=== PATIENT | male | born 1960 | race Caucasian/White ===

== ENCOUNTER 2017-02-05 02:30 | Emergency (ER) | payer MEDICAID ==
--- NOTE | 2017-02-05 03:06 | EDM.PDOC ---
ED HPI GI/ABDOMINAL - General Chief Complaint: Abdominal Pain Time Seen by Provider: 02/05/17 02:54 Source of Information: Reports: Patient - History of Present Illness INITIAL COMMENTS - FREE TEXT/NARRATIVE: Subacute to acute LUQ and LLQ going on for past couple of days maybe worse tonight. No NVD or dysuria. Seen in clinic for similar 2d ago with normal UA, CBC, Xray. Seen in ER and clinic numerous times in past for similar. Has stone on R side once in past. OTher CT scan was negative. Hx of developmental delay , kidney stone, otherwise healthy. Nonsmoker. Colonoscopy UTD and neg. - Related Data Allergies/ADRs: Allergies Allergy/AdvReac Type Severity Reaction Status Date / Time No Known Allergies Allergy Verified 10/11/15 01:21 Home Meds: Home Meds Dicyclomine [Bentyl] 10 mg PO TID PRN #30 cap 02/05/17 [Rx] Past Medical History - Past Surgical History Other Musculoskeletal Surgeries/Procedures:: hammer toe surgery as a child Social & Family History - Tobacco Use Smoking Status *Q: Never Smoker - Alcohol Use Days Per Week of Alcohol Use: 0 - Recreational Drug Use Recreational Drug Use: No - Living Situation & Occupation Living situation: Reports: single ED ROS GENERAL - Review of Systems Review Of Systems: See Below Constitutional: Denies: fever, chills Respiratory: Denies: Shortness of Breath Cardiovascular: Denies: Chest pain GI/Abdominal: Denies: Black stool, Bloody stool, Constipation, Diarrhea, Nausea , Vomiting : Denies: dysuria, hematuria ED EXAM, GI/ABD - Physical Exam Exam: See Below Exam Limited By: No limitations General Appearance: alert, WD/WN, no apparent distress (Laying comfortably in bed, 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 No: guarding, rebound, rigidity, Rovsing's sign Course - Vital Signs Last Recorded V/S: Last Vital Signs Temp 35.8 C 02/05/17 02:43 Pulse 69 02/05/17 02:43 Resp 16 02/05/17 02:43 BP 127/72 02/05/17 02:43 Pulse Ox 98 02/05/17 02:43 - Orders/Labs/Meds Orders: Active Orders 24 hr Category Date Time Status Abdomen Pelvis wo Cont [CT] Stat Exams 02/05/17 03:06 Taken UA W/MICROSCOPIC [URIN] Stat Lab 02/05/17 02:40 Uncollected Labs: Laboratory Tests 02/05/17 02/05/17 02/05/17 Range/Units 03:05 03:05 03:05 WBC 5.2 (4.0-10.0) x10^3/uL RBC 5.07 (4.5-6.0) x10^6/uL Hgb 14.5 (14.0-18.0) g/dL Hct 41.4 (40.0-52.0) % MCV 81.7 (78.0-93.0) fL MCH 28.6 (26.0-32.0) pg MCHC 35.0 (32.0-36.0) g/dL RDW Coeff of [place] 13.9 (10.0-15.0) % Plt Count 182 (130-400) x10^3/uL Neut % (Auto) 54.5 (50.0-80.0) % Lymph % (Auto) 33.3 (25.0-50.0) % [place] % (Auto) 7.3 (2.0-11.0) % Eos % (Auto) 3.6 (0.0-4.0) % Baso % (Auto) 1.3 H (0.2-1.2) % Sodium 141 (136-145) mmol/L Potassium 3.9 (3.5-5.1) mmol/L Chloride 106 (98-107) mmol/L Carbon Dioxide 29 (21-32) mmol/L BUN 15 (7-18) mg/dL Creatinine 1.1 (0.70-1.30) mg/dL Est Cr Clr Drug Dosing 66.78 mL/min Estimated GFR (MDRD) > 60 Glucose 93 (74-106) mg/dL Calcium 8.4 L (8.5-10.1) mg/dL Corrected Calcium 8.64 (8.5-10.1) mg/dL Total Bilirubin 0.9 (0.2-1.0) mg/dL AST 22 (15-37) U/L ALT 37 (16-63) U/L Alkaline Phosphatase 82 (46-116) U/L C-Reactive Protein < 0.2 (<=0.9) mg/dL Total Protein 6.8 (6.4-8.2) g/dL Albumin 3.7 (3.4-5.0) g/dL Globulin 3.1 Albumin/Globulin Ratio 1.19 Amylase 41 (25-115) U/L Meds: Medications Discontinued Medications Generic Name Dose Route Start Last Admin Trade Name Freq PRN Reason Stop Dose Admin Ketorolac Tromethamine 30 mg 02/05/17 03:08 02/05/17 03:19 Toradol IM 02/05/17 03:09 30 mg ONETIME ONE Administration Departure - Departure Time of Disposition: 03:53 Disposition: Home, Self-Care 01 Condition: good Clinical Impression: Abdominal pain Prescriptions: Dicyclomine [Bentyl] 10 mg PO TID PRN #30 cap PRN Reason: Abdominal Pain Referrals: PCP,Unknown [Primary Care Provider] - Forms: ED Department Discharge Additional Instructions: Recurrent abd pain with normal CBC, UA, repeat CT, colonoscopy would be consistent with functional/irritable bowl syndrome pain Metamcuil daily, plenty of fluids Bentyl or peppermints for attacks Limit beans, diary, breads Follow-up with Glenna in 2 weeks for recheck Because it's not clear what causes irritable bowel syndrome, treatment focuses on the relief of symptoms so that you can live as normally as possible. In most cases, you can successfully control mild signs and symptoms of irritable bowel syndrome by learning to manage stress and making changes in your diet and lifestyle. Try to avoid foods that trigger your symptoms. Also try to get enough exercise, drink plenty of fluids and get enough sleep. If your problems are moderate or severe, you may need more than lifestyle changes. Your doctor may suggest and medications. Dietary changes: Eliminating high-gas foods. If you have bothersome bloating or are passing considerable amounts of gas, your doctor may suggest that you cut out such items as carbonated beverages, vegetables especially cabbage, broccoli and cauliflower and raw fruits. Eliminating gluten. Research shows that some people with IBS report improvement in diarrhea symptoms if they stop eating gluten (wheat, barley and rye). This recommendation remains controversial, and the evidence is not clear. Eliminating FODMAPs. Some people are sensitive to types of carbohydrates such as fructose, fructans, lactose and others, called FODMAPs (fermentable oligo-, di-, and monosaccharides and polyols). FODMAPs are found in certain grains, vegetables, fruits and dairy products. However, often people are not bothered by every FODMAP food. You may be able to get relief from your IBS symptoms on a strict low FODMAP diet and then reintroduce foods one at time. See list below. Medications: Fiber supplements. Taking fiber supplements, such as psyllium (Metamucil) or methylcellulose (Citrucel), with fluids may help control constipation. Fiber obtained from food may cause much more bloating compared with a fiber supplement. If fiber doesn't help symptoms, your doctor may prescribe an osmotic laxative such as milk of magnesia or polyethylene glycol. Anticholinergic and antispasmodic medications. These medications, such as hyoscyamine (Levsin) and dicyclomine (Bentyl), can help relieve painful bowel spasms. They are sometimes used for people who have bouts of diarrhea, but they can worsen constipation and can lead to other symptoms, such as difficulty urinating. They should also be used with caution among people with glaucoma. Antidepressant medications. If your symptoms include pain or depression, your doctor may recommend a tricyclic antidepressant or a selective serotonin reuptake inhibitor (SSRI). These medications help relieve depression as well as inhibit the activity of neurons that control the intestines. If you have diarrhea and abdominal pain without depression, your doctor may suggest a lower than normal dose of tricyclic antidepressants, such as imipramine (Tofranil) or nortriptyline (Pamelor). Side effects of these drugs include drowsiness and constipation. SSRIs, such as fluoxetine (Prozac, Sarafem ) or paroxetine (Paxil), may be helpful if you're depressed and have pain and constipation. [place] with fiber. When you have irritable bowel syndrome, fiber can be a mixed blessing. Although it helps reduce constipation, it can also make gas and cramping worse. The best approach is to slowly increase the amount of fiber in your diet over a period of weeks. Examples of foods that contain fiber are whole grains, fruits, vegetables and beans. If your signs and symptoms remain the same or worse, tell your doctor. You may also want to talk to a dietitian. Some people do better limiting dietary fiber and instead take a fiber supplement that causes less gas and bloating. If you take a fiber supplement, such as Metamucil or Citrucel, be sure to introduce it slowly and drink plenty of water every day to reduce gas, bloating and constipation. If you find that taking fiber helps your IBS, use it on a regular basis for best results. Avoid problem foods. If certain foods make your signs and symptoms worse, don't eat them. These may include alcohol, chocolate, caffeinated beverages such as coffee and sodas, medications that contain caffeine, dairy products, and sugar- free sweeteners such as sorbitol or mannitol. If gas is a problem for you, foods that might make symptoms worse include beans , cabbage, cauliflower and broccoli. Fatty foods also may be a problem for some people. Chewing gum or drinking through a straw can lead to swallowing air, causing more gas. Eat at regular times. Don't skip meals, and try to eat about the same time each day to help regulate bowel function. If you have diarrhea, you may find that eating small, frequent meals makes you feel better. But if you're constipated, eating larger amounts of high-fiber foods may help move food through your intestines. Take care with dairy products. If you're lactose intolerant, try substituting yogurt for milk. Or use an enzyme product to help break down lactose. Consuming small amounts of milk products or combining them with other foods also may help. In some cases, though, you may need to stop eating dairy foods completely. If so, be sure to get enough protein, calcium and B vitamins from other sources. Drink plenty of liquids. Try to drink plenty of fluids every day. Water is best. Alcohol and beverages that contain caffeine stimulate your intestines and can make diarrhea worse, and carbonated drinks can produce gas. Exercise regularly. Exercise helps relieve depression and stress, stimulates normal contractions of your intestines, and can help you feel better about yourself. If you've been inactive, start slowly and gradually increase the amount of time you exercise. If you have other medical problems, check with your doctor before starting an exercise program. Use anti-diarrheal medications and laxatives with caution. If you try over-the- counter anti-diarrheal medications, such as Imodium or Kaopectate, use the lowest dose that helps. Imodium may be helpful if taken 20 to 30 minutes before eating, especially if you know that the food planned for your meal is likely to cause diarrhea. In the long run, these medications can cause problems if you don't use them correctly. The same is true of laxatives. If you have any questions about them, check with your doctor or pharmacist. The following nontraditional therapies may help relieve symptoms of IBS: Acupuncture. Researchers have found that acupuncture may help improve symptoms for people with IBS. Herbs. Peppermint is a natural antispasmodic that relaxes smooth muscles in the intestines. Peppermint may provide short-term relief of IBS symptoms, but study results have been inconsistent. If you'd like to try peppermint, be sure to use enteric-coated capsules. Peppermint may make heartburn worse. Before taking any herbs, check with your doctor to be sure they won't interact or interfere with other medications. A blend of herbs called STW 5 (Iberogast) has been shown to help some people. Hypnosis. Hypnosis may reduce abdominal pain and bloating. A trained professional teaches you how to enter a relaxed state and then guides you in relaxing your abdominal muscles. Probiotics. Probiotics are "good" bacteria that normally live in your intestines and are found in certain foods, such as yogurt, and in dietary supplements. It's been suggested that if you have irritable bowel syndrome, you may not have enough good bacteria and that adding probiotics to your diet may help ease your symptoms. Recent studies suggest that certain probiotics may relieve symptoms of IBS, such as abdominal pain, bloating, diarrhea and quality of life, although additional investigation is needed. Regular exercise, yoga, massage or meditation. These can all be useful ways to relieve stress. You can take classes in yoga and meditation or practice at home using books or videos. - Problem List Review Problem List Initiated/Reviewed/Updated: Yes - My Orders Last 24 Hours: My Active Orders 02/05/17 02:40 UA W/MICROSCOPIC [URIN] Stat 02/05/17 03:06 Abdomen Pelvis wo Cont [CT] Stat - Assessment/Plan Last 24 Hours: My Active Orders 02/05/17 02:40 UA W/MICROSCOPIC [URIN] Stat 02/05/17 03:06 Abdomen Pelvis wo Cont [CT] Stat Assessment:: Recurrent abd pain with normal CBC, UA, repeat CT, colonoscopy would be consistent with functional/IBS sx. Metamcuil daily, plenty of fluids Bentyl or peppermints for attacks Limit beans, diary, breads Follow-up with Glenna in 2 weeks for recheck
[2017-02-05] MEDS ORDERED: Ketorolac 30 MG/ML SDV IM ONE (03:08)
[2017-02-05 03:33] LABS: CHLORIDE,CL 106 mmol/L (98-107); SODIUM,NA 141 mmol/L (136-145)
[2017-02-05] MEDS ORDERED: Lactated Ringers 1,000 ML IV ONE ×3 (04:43→06:57)
[2017-02-05] MEDS ORDERED: Meclizine 25 MG Tab PO ONE (04:43)
[2017-02-05 07:07] VITALS: BP 135/67
== END 2017-02-05 08:15 | disposition home or self-care (01) ==
LOC: VM.ED 02:30
DX: R10.12 Left upper quadrant pain (principal); R10.32 Left lower quadrant pain
CPT/HCPCS: 36415; 74176; 80053; 82150; 85025; 86140; 93005; 96360; 96361; 96372; 99285; A9270; J1885; J7120

== ENCOUNTER 2017-03-22 16:11 | Emergency (ER) | payer MEDICAID ==
[2017-03-22 16:24] VITALS: BP 133/93
[2017-03-22] MEDS ORDERED: Prochlorperazine 10 MG/2 ML SDV IM ONE (16:46)
[2017-03-22 17:34] LABS: CHLORIDE,CL 105 mmol/L (98-107); SODIUM,NA 142 mmol/L (136-145)
--- NOTE | 2017-03-23 08:50 | ER ---
Date of Service: 03/22/2017 SUBJECTIVE: Yannick presents to emergency room with complaints of diffuse abdominal pain. He states that he has not had a bowel movement in several days. He states that his appetite has been poor. He states that he is able to hold down food and water but does not feel like eating or drinking due to increased stressors in his life. The patient does have a developmental delay, but does live independently and works at [employer] here in [place]. He was speaking with his mother today who lives approximately 60 miles away from [place]. She subsequently came to [place] and brought him here to the emergency room for evaluation and treatment. PAST MEDICAL HISTORY: Developmental delay. MEDICATIONS: 1. Bentyl. 2. MiraLAX. However, he has not been taking his MiraLAX for several days. ALLERGIES: NKDA. REVIEW OF SYSTEMS: General: No fever or chills. HEENT: No sore throat, rhinorrhea, or congestion. Respiratory: No shortness of breath. Cardiac: Denies any substernal chest pain. No jaw, arm, neck, or back pain. GI: Please see history of present illness. Denies any melena, hematochezia, or hematemesis. : Denies any dysuria. Musculoskeletal: No myalgias or arthralgias. Neurologic: No fainting, blackouts, or lightheadedness. PHYSICAL EXAMINATION: General: This is a 56-year-old male patient, who in no acute distress. Vital Signs: Blood pressure is 133/93, pulse rate is 72, temperature is 36.2, respiratory rate is 16, O2 saturations 97%. Skin: Warm, pink, and dry. HEENT: Head is normocephalic, atraumatic. Eyes, PERRLA. Extraocular movements intact. Mouth, oral mucosa is moist. No erythema or exudate noted in the hypopharynx. Neck: Supple. No masses. There is no lymphadenopathy. Lungs: Clear to auscultation. Heart: Regular rate and rhythm. Abdomen: Soft, diffusely tender throughout. There is no mass noted. There is no hepatosplenomegaly noted. Bowel sounds are hypoactive. LABORATORY DATA: Abdomen complete series was obtained. There was no evidence of any acute infiltrate or obstruction on the abdominal films. He did have evidence of stool throughout the entirety of his colon. Hematology, WBC is 4.7, hemoglobin is 15.7, platelets are 233. Chemistry, sodium is 142, potassium is 4.0, chloride is 105, bicarb is 28, BUN is 22, creatinine is 1.2. GFR is greater than 60. Glucose is 83. Lactic acid is 1.3. Calcium is 8.9, corrected calcium is 8.58, total bilirubin is 2.9. AST is 15, ALT is 24, alkaline phosphatase is 71, CK is 67, troponin is 0.00. EMERGENCY ROOM COURSE: The patient was given injection of 10 mg of Compazine IM. Did report some improvement in has nausea and was able to hold food and fluids down without difficulty. ASSESSMENT: 1. Constipation. 2. Acute anxiety. PLAN: The patient will be discharged. Advised him to restart MiraLAX 17 g once daily. Drink plenty of fluids. I advised him to be as active as much as possible, up ambulating and walking around. All questions were answered. MWK: 03/22/2017 19:15:50 MODL: 03/22/2017 23:21:34 /[id number]
== END 2017-03-22 18:30 | disposition home or self-care (01) ==
LOC: VM.ED 16:11
DX: K59.00 Constipation, unspecified (principal); F41.9 Anxiety disorder, unspecified; R62.50 Unspecified lack of expected normal physiological development in childhood
CPT/HCPCS: 36415; 74022; 80053; 82550; 82553; 83605; 84484; 85025; 86140; 93005; 96372; 99284; J0780

== ENCOUNTER 2019-02-15 04:53 | Emergency (ER) | payer MEDICAID ==
[2019-02-15] MEDS ORDERED: GI Cocktail Oral Solution 30 ML PO ONE (05:13)
[2019-02-15] MEDS ORDERED: Ketorolac 30 MG/ML SDV IM ONE (05:14)
[2019-02-15 06:06] LABS: CHLORIDE,CL 107 mmol/L (98-107); SODIUM,NA 143 mmol/L (136-145)
[2019-02-15 06:07] LABS: ANION GAP 14.8 mmol/L (10-20)
--- NOTE | 2019-02-15 06:17 | EDM.PDOC ---
ED HPI GENERAL MEDICAL PROBLEM - General Chief Complaint: Chest Pain Time Seen by Provider: 02/15/19 05:00 Source of Information: Reports: Patient History Limitations: Reports: No Limitations - History of Present Illness INITIAL COMMENTS - FREE TEXT/NARRATIVE: Pt. presents to ER with complaints of chest pain and RLQ abdominal pain. Pt. states that the symptoms started yesterday. Denies any radiation into jaw, arms , neck or back. He states that he underwent an EGD with botox injection. last week for reflux. He states that the discomfort is worse when he moves or takes a deep breath. States that the discomfort is a burning/pressure type pain. Denies any fever or chills. No vomiting of blood or abnormal taste. No dark or tarry stools. He states that the pain started intermittently this past weekend but got worse yesterday and today. Denies any headache or lightheadedness. No palpitations. Onset: Today Onset Date: 02/15/19 Location: Reports: Chest, Abdomen Quality: Reports: Ache, Burning Severity: Moderate Associated Symptoms: Reports: Chest Pain Middle Chest Pain Score (Numeric/FACES): 5 - Related Data Allergies Allergy/AdvReac Type Severity Reaction Status Date / Time No Known Allergies Allergy Verified 02/15/19 05:07 Home Meds: Home Meds Dicyclomine [Bentyl] 10 mg PO TID PRN #30 cap 02/05/17 [Rx] Levothyroxine Sodium [Synthroid] 25 mcg PO ACBREAKFAST 09/19/17 [History] Sertraline HCl [Zoloft] 75 mg PO DAILY 09/19/17 [History] Melatonin 3 mg PO BEDTIME 02/15/19 [History] Pantoprazole Sodium [Protonix] 20 mg PO BID 02/15/19 [History] Past Medical History - Past Health History Medical/Surgical History: Denies Medical/Surgical History Psychiatric History: Reports: Depression Endocrine/Metabolic History: Reports: Hypothyroidism - Past Surgical History GI Surgical History: Reports: EGD Other GI Surgeries/Procedures: EGD 02/11/19 Other Musculoskeletal Surgeries/Procedures:: hammer toe surgery as a child Social & Family History - Tobacco Use Smoking Status *Q: Never Smoker - Living Situation & Occupation Living situation: Reports: Single ED ROS GENERAL - Review of Systems Review Of Systems: See Below Constitutional: Reports: No Symptoms HEENT: Reports: No Symptoms Respiratory: Reports: No Symptoms, Pleuritic Chest Pain Cardiovascular: Reports: Chest Pain Endocrine: Reports: No Symptoms GI/Abdominal: Reports: Abdominal Pain : Reports: No Symptoms Musculoskeletal: Reports: No Symptoms Skin: Reports: No Symptoms Neurological: Reports: No Symptoms Psychiatric: Reports: No Symptoms Hematologic/Lymphatic: Reports: No Symptoms Immunologic: Reports: No Symptoms ED EXAM, GENERAL - Physical Exam Exam: See Below Exam Limited By: No Limitations General Appearance: Alert, WD/WN, No Apparent Distress Nose: Normal Inspection, Normal Mucosa, No Blood Throat/Mouth: Normal Inspection, Normal Lips, Normal Teeth, Normal Gums, Normal Oropharynx, Normal Voice, No Airway Compromise Head: Atraumatic, Normocephalic Neck: Normal Inspection, Supple, Non-Tender, Full Range of Motion Respiratory/Chest: No Respiratory Distress, Lungs Clear, Normal Breath Sounds, No Accessory Muscle Use, Other (increased chest pain with compression of the chest wall and with palpation) Cardiovascular: Normal Peripheral Pulses, Regular Rate, Rhythm, No Edema, No Gallop, No JVD, No Murmur, No Rub Peripheral Pulses: 4+: Radial (L) GI/Abdominal: Normal Bowel Sounds, Soft, No Organomegaly, No Distention, No Mass , Tender (R side of abdomen. No rebound. No guarding.) (Male) Exam: Deferred Rectal (Males) Exam: Deferred Back Exam: Normal Inspection, Full Range of Motion Extremities: Normal Inspection, Normal Range of Motion, Non-Tender, No Pedal Edema, Normal Capillary Refill Neurological: Alert, Oriented, CN II-XII Intact, Normal Cognition, Normal Gait, Normal Reflexes, No Motor/Sensory Deficits Psychiatric: Normal Affect, Normal Mood Skin Exam: Warm, Dry, Intact, Normal Color, No Rash Lymphatic: No Adenopathy EKG INTERPRETATION Rhythm: NSR [place]: Normal P-Wave: Present QRS: Normal ST-T: Normal QT: Normal Comparison: No Change Course - Vital Signs Last Recorded V/S: Last Vital Signs Temp 35.8 C 02/15/19 04:54 Pulse 63 02/15/19 04:54 Resp 18 02/15/19 04:54 BP 146/93 H 02/15/19 04:54 Pulse Ox 99 02/15/19 04:54 - Orders/Labs/Meds Orders: Active Orders 24 hr Category Date Time Status EKG Documentation Completion [RC] STAT Care 02/15/19 05:08 Active Chest 2V [CR] Stat Exams 02/15/19 05:09 Taken CBC WITH AUTO DIFF [HEME] Stat Lab 02/15/19 05:27 Received INR,PT,PROTHROMBIN TIME [COAG] Stat Lab 02/15/19 05:27 Received UA W/MICROSCOPIC [URIN] Stat Lab 02/15/19 06:05 Ordered Labs: Laboratory Tests 02/15/19 02/15/19 Range/Units 05:27 05:37 Sodium 143 (136-145) mmol/L Potassium 3.8 (3.5-5.1) mmol/L Chloride 107 (98-107) mmol/L Carbon Dioxide 25 (21-32) mmol/L Anion Gap 14.8 (10-20) mmol/L BUN 17 (7-18) mg/dL Creatinine 1.0 (0.70-1.30) mg/dL Est Cr Clr Drug Dosing TNP Estimated GFR (MDRD) > 60 Glucose 87 (74-106) mg/dL Calcium 8.7 (8.5-10.1) mg/dL Corrected Calcium 8.86 (8.5-10.1) mg/dL Phosphorus 2.9 (2.6-4.7) mg/dL Magnesium 2.2 (1.8-2.4) mg/dL Total Bilirubin 1.2 H (0.2-1.0) mg/dL AST 17 (15-37) U/L ALT 23 (16-63) U/L Alkaline Phosphatase 76 (46-116) U/L POC Troponin I 0.00 (0.00-0.08) ng/mL C-Reactive Protein < 0.2 (<=0.9) mg/dL Total Protein 7.0 (6.4-8.2) g/dL Albumin 3.8 (3.4-5.0) g/dL Globulin 3.2 Albumin/Globulin Ratio 1.19 TSH, Ultra Sensitive 10.314 H (0.358-3.74) uIU/mL Meds: Medications Discontinued Medications Generic Name Dose Route Start Last Admin Trade Name Freq PRN Reason Stop Dose Admin Al Hydroxide/Mg Hydroxide 30 ml 02/15/19 05:13 02/15/19 05:20 Gi Cocktail PO 02/15/19 05:14 30 ml ONETIME ONE Administration Ketorolac Tromethamine 30 mg 02/15/19 05:14 02/15/19 05:20 Toradol IM 02/15/19 05:15 30 mg ONETIME ONE Administration - Radiology Interpretation Free Text/Narrative:: No acute pathology Departure - Departure Time of Disposition: 06:49 Disposition: Home, Self-Care 01 Clinical Impression: Abdominal pain, Atypical chest pain - Discharge Information - Problem List Review Problem List Initiated/Reviewed/Updated: Yes - My Orders Last 24 Hours: My Active Orders 02/15/19 05:08 EKG Documentation Completion [RC] STAT 02/15/19 05:09 Chest 2V [CR] Stat 02/15/19 05:27 CBC WITH AUTO DIFF [HEME] Stat INR,PT,PROTHROMBIN TIME [COAG] Stat 02/15/19 06:05 UA W/MICROSCOPIC [URIN] Stat - Assessment/Plan Last 24 Hours: My Active Orders 02/15/19 05:08 EKG Documentation Completion [RC] STAT 02/15/19 05:09 Chest 2V [CR] Stat 02/15/19 05:27 CBC WITH AUTO DIFF [HEME] Stat INR,PT,PROTHROMBIN TIME [COAG] Stat 02/15/19 06:05 UA W/MICROSCOPIC [URIN] Stat Plan: Continue with your current medications. If you are continuing to have discomfort, Maalox may be of benefit. Ibuprofen 600mg every 8 hours for pain. Follow-up in clinic in 7-10 days for recheck. Return to ER if increased discomfort, trouble breathing or swallowing.
[2019-02-15 06:55] VITALS: BP 125/78
--- NOTE | 2019-02-15 08:19 | CR ---
[id number] RAD/RAD Chest PA And Lateral EXAM: FRONTAL AND LATERAL CHEST INDICATION: Chest pain. COMPARISON: September 19, 2017. DISCUSSION: There is mild cardiomegaly without evidence congestive heart failure. Chronically obscured left hemidiaphragm. No definite infiltrates. IMPRESSION: 1. Stable cardiomegaly without evidence of congestive heart failure. Franco Hamilton MD 02/15/19 0817 Thank you for allowing us to participate in the care of your patient.
== END 2019-02-15 06:46 | disposition home or self-care (01) ==
LOC: VM.ED 04:53
DX: R07.89 Other chest pain (principal); R10.31 Right lower quadrant pain; F32.9 Major depressive disorder, single episode, unspecified; E03.9 Hypothyroidism, unspecified; Z79.899 Other long term (current) drug therapy
CPT/HCPCS: 36415; 71046; 80053; 81001; 83735; 84100; 84443; 84484; 85025; 85610; 86140; 93005; 96372; 99285-25; A9270-GY; J1885

== ENCOUNTER 2019-06-22 12:11 | Emergency (ER) | payer MEDICAID ==
[2019-06-22] MEDS ORDERED: Sodium Chloride 0.9% 10 ML Syringe FLUSH PRN (12:20)
--- NOTE | 2019-06-22 12:48 | EDM.PDOC ---
ED HPI GENERAL MEDICAL PROBLEM - General Chief Complaint: Abdominal Pain Stated Complaint: WEAKNESS,STOMACH AND STOMACH PAIN Time Seen by Provider: 06/22/19 12:18 - History of Present Illness INITIAL COMMENTS - FREE TEXT/NARRATIVE: PT presents with c/o left side abd pain and chest pain that started today. PT states has not had a bm in a few days at this time. Onset: Today Location: Reports: Abdomen Quality: Reports: Ache Improves with: Reports: None Worsens with: Reports: None - Related Data Allergies Allergy/AdvReac Type Severity Reaction Status Date / Time No Known Allergies Allergy Verified 02/15/19 05:07 Home Meds: Home Meds Dicyclomine [Bentyl] 10 mg PO TID PRN #30 cap 02/05/17 [Rx] Levothyroxine Sodium [Synthroid] 25 mcg PO ACBREAKFAST 09/19/17 [History] Sertraline HCl [Zoloft] 75 mg PO DAILY 09/19/17 [History] Melatonin 3 mg PO BEDTIME 02/15/19 [History] Pantoprazole Sodium [Protonix] 20 mg PO BID 02/15/19 [History] Past Medical History - Past Health History Medical/Surgical History: Denies Medical/Surgical History Psychiatric History: Reports: Depression Endocrine/Metabolic History: Reports: Hypothyroidism - Past Surgical History GI Surgical History: Reports: EGD Other GI Surgeries/Procedures: EGD 02/11/19 Other Musculoskeletal Surgeries/Procedures:: hammer toe surgery as a child Social & Family History - Living Situation & Occupation Living situation: Reports: Single ED ROS GENERAL - Review of Systems Review Of Systems: See Below ED EXAM, GI/ABD - Physical Exam Exam: See Below Text/Narrative:: CT noted moderate amount of stool in the colon, small periumbilical hernia, 0.7 cm nonobstructing right renal calculus General Appearance: Alert, WD/WN, No Apparent Distress Ears: Normal External Exam Nose: Normal Inspection Throat/Mouth: Normal Inspection Head: Atraumatic, Normocephalic Neck: Normal Inspection, Supple, Non-Tender, Full Range of Motion Respiratory/Chest: No Respiratory Distress, Lungs Clear, Normal Breath Sounds, No Accessory Muscle Use, Chest Non-Tender Cardiovascular: Normal Peripheral Pulses, Regular Rate, Rhythm, No Edema, No Gallop, No JVD, No Murmur, No Rub GI/Abdominal Exam: Soft, No Mass, Pelvis Stable, Other (pain to the left side of abd, and midepigastric area ) Extremities: Normal Inspection, Normal Range of Motion, Non-Tender, Normal Capillary Refill, No Pedal Edema Course - Orders/Labs/Meds Orders: Active Orders 24 hr Category Date Time Status EKG 12 Lead [EKG Documentation Completion] [RC] STAT Care 06/22/19 12:21 Active Sodium Chloride 0.9% [Saline Flush] Med 06/22/19 12:20 Active 10 ml FLUSH ASDIRECTED PRN Peripheral IV Insertion Adult [OM.PC] Routine Oth 06/22/19 12:20 Ordered Medication Orders Sodium Chloride (Saline Flush) 10 ml FLUSH ASDIRECTED PRN PRN Reason: Keep Vein Open Labs: Laboratory Tests 06/22/19 06/22/19 06/22/19 Range/Units 12:30 12:30 12:30 WBC 4.6 (4.0-10.0) x10^3/uL RBC 5.46 (4.5-6.0) x10^6/uL Hgb 15.9 (14.0-18.0) g/dL Hct 45.2 (40.0-52.0) % MCV 82.8 (78.0-93.0) fL MCH 29.1 (26.0-32.0) pg MCHC 35.2 (32.0-36.0) g/dL RDW Coeff of [place] 13.6 (10.0-15.0) % Plt Count 203 (130-400) x10^3/uL Neut % (Auto) 65.9 (50.0-80.0) % Lymph % (Auto) 26.3 (25.0-50.0) % [place] % (Auto) 5.2 (2.0-11.0) % Eos % (Auto) 1.7 (0.0-4.0) % Baso % (Auto) 0.9 (0.2-1.2) % Sodium 142 (136-145) mmol/L Potassium 4.6 (3.5-5.1) mmol/L Chloride 106 (98-107) mmol/L Carbon Dioxide 28 (21-32) mmol/L Anion Gap 12.6 (10-20) mmol/L BUN 16 (7-18) mg/dL Creatinine 1.2 (0.70-1.30) mg/dL Est Cr Clr Drug Dosing TNP Estimated GFR (MDRD) > 60 Glucose 83 (74-106) mg/dL Calcium 9.2 (8.5-10.1) mg/dL Troponin I < 0.017 (<=0.056) ng/mL Meds: Medications Generic Name Dose Route Start Last Admin Trade Name Freq PRN Reason Stop Dose Admin Sodium Chloride 10 ml 06/22/19 12:20 Saline Flush FLUSH ASDIRECTED PRN Keep Vein Open Discontinued Medications Generic Name Dose Route Start Last Admin Trade Name Freq PRN Reason Stop Dose Admin Iopamidol 100 ml 06/22/19 13:13 06/22/19 13:41 Isovue-300 (61%) IVPUSH 06/22/19 13:14 100 ml ONETIME ONE Administration Departure - Departure Time of Disposition: 15:10 Disposition: Home, Self-Care 01 Clinical Impression: Constipation, Hernia, Renal calculus - Discharge Information *PRESCRIPTION DRUG MONITORING PROGRAM REVIEWED*: Not Applicable *COPY OF PRESCRIPTION DRUG MONITORING REPORT IN PATIENT JAVAD: Not Applicable Instructions: Constipation, Adult Referrals: Glenna Ribeiro PA-C [Primary Care Provider] - Forms: ED Department Discharge Additional Instructions: magnesium citrate take on bottle at home for constipation. Follow up with pcp for continued care. - My Orders Last 24 Hours: My Active Orders 06/22/19 12:20 Sodium Chloride 0.9% [Saline Flush] 10 ml FLUSH ASDIRECTED PRN Peripheral IV Insertion Adult [OM.PC] Routine 06/22/19 12:21 EKG 12 Lead [EKG Documentation Completion] [RC] STAT - Assessment/Plan Last 24 Hours: My Active Orders 06/22/19 12:20 Sodium Chloride 0.9% [Saline Flush] 10 ml FLUSH ASDIRECTED PRN Peripheral IV Insertion Adult [OM.PC] Routine 06/22/19 12:21 EKG 12 Lead [EKG Documentation Completion] [RC] STAT
[2019-06-22 12:51] LABS: ANION GAP 12.6 mmol/L (10-20); CHLORIDE,CL 106 mmol/L (98-107); SODIUM,NA 142 mmol/L (136-145)
[2019-06-22] MEDS ORDERED: Iopamidol 612 MG/ML 100 ML Bottle IVPUSH ONE (13:13)
--- NOTE | 2019-06-22 14:51 | CT ---
[id number] CT/CT Abdomen Pelvis W IV EXAM: CT Abdomen Pelvis W IV CLINICAL DATA: ABDOMINAL PAIN LEFT SIDE, NO BM 2 DAYS. COMPARISON STUDY: None. FINDINGS: Lung bases are clear. Liver, spleen, gallbladder, pancreas, and adrenal glands are unremarkable. There is a 0.7 cm nonobstructing right renal calculus. No other renal calculi identified. No hydronephrosis or hydroureter. No suspicious renal lesions are identified. No bowel obstruction or inflammation. The appendix is visualized and appears normal. There are a few scattered colonic diverticula without evidence of acute diverticulitis. Moderate amount of retained stool within the colon. There are a few prominent retroperitoneal lymph nodes. For example there is a right retroperitoneal lymph node measuring 1.0 cm in short axis (series 2 image 47). Small fat-containing periumbilical hernia. Small fat-containing inguinal hernias. Scattered changes of spondylosis the spine. No fracture or osseous lesion. IMPRESSION: 1. Moderate amount of retained stool within the colon. No evidence of obstruction. 2. Nonobstructing right renal calculus. 3. Bilateral retroperitoneal adenopathy, nonspecific. Mk Jones DO 06/22/19 [id number] Thank you for allowing us to participate in the care of your patient.
[2019-06-22 16:33] VITALS: BP 124/74; PULSE 60
== END 2019-06-22 16:15 | disposition home or self-care (01) ==
LOC: VM.ED 12:11
DX: N20.0 Calculus of kidney (principal); K42.9 Umbilical hernia without obstruction or gangrene; E03.9 Hypothyroidism, unspecified; Z79.899 Other long term (current) drug therapy
CPT/HCPCS: 36415; 74177; 80048; 84484; 85025; 93005; 99284; Q9967

== ENCOUNTER 2019-12-09 11:49 | Emergency (ER) | payer MEDICAID ==
[2019-12-09] MEDS ORDERED: GI Cocktail Oral Solution 30 ML PO ONE (11:57)
--- NOTE | 2019-12-09 12:05 | EDM.PDOC ---
ED HPI GENERAL MEDICAL PROBLEM - General Chief Complaint: Abdominal Pain Stated Complaint: general Time Seen by Provider: 12/09/19 11:50 Source of Information: Reports: Patient History Limitations: Reports: No Limitations - History of Present Illness INITIAL COMMENTS - FREE TEXT/NARRATIVE: Patient comes into the emergency department with complaints of abdominal pain, left groin pain, and no chest discomfort. Patient states all of the above symptoms started last evening around 11 PM. He states he did have an EGD completed earlier in the month. He does not know the results of that. He denies any shortness of breath, diaphoresis, nausea vomiting, or loss of bowels. Patient also denies any episodes of diarrhea. Patient is a poor historian and is not consistent with his answers. Onset: Gradual Quality: Reports: Ache, Burning Severity: Mild Improves with: Reports: None Worsens with: Reports: None Associated Symptoms: Reports: No Other Symptoms Bilateral Chest Pain Score (Numeric/FACES): 7 - Related Data Allergies Allergy/AdvReac Type Severity Reaction Status Date / Time No Known Allergies Allergy Verified 12/09/19 12:11 Home Meds: Home Meds Dicyclomine [Bentyl] 10 mg PO TID PRN #30 cap 02/05/17 [Rx] Levothyroxine Sodium [Synthroid] 25 mcg PO ACBREAKFAST 09/19/17 [History] Sertraline HCl [Zoloft] 75 mg PO DAILY 09/19/17 [History] Melatonin 3 mg PO BEDTIME 02/15/19 [History] Pantoprazole Sodium [Protonix] 20 mg PO BID 02/15/19 [History] Diltiazem HCl [Cardizem] 60 mg TID 06/22/19 [History] Past Medical History - Past Health History Medical/Surgical History: Denies Medical/Surgical History Cardiovascular History: Reports: Other (See Below) Other Cardiovascular History: costochondral chest pain Gastrointestinal History: Reports: Other (See Below) Other Gastrointestinal History: esophageal dysmotility. L sided abd pain Genitourinary History: Reports: Other (See Below) Other Genitourinary History: nephrolithiasis Neurological History: Reports: Other (See Below) Other Neuro History: developmental delay disorder Psychiatric History: Reports: Depression Endocrine/Metabolic History: Reports: Hypothyroidism - Past Surgical History GI Surgical History: Reports: EGD Other GI Surgeries/Procedures: EGD 02/11/19 Other Musculoskeletal Surgeries/Procedures:: hammer toe surgery as a child Social & Family History - Living Situation & Occupation Living situation: Reports: Single ED ROS GENERAL - Review of Systems Review Of Systems: See Below Constitutional: Reports: No Symptoms HEENT: Reports: No Symptoms Respiratory: Reports: No Symptoms Cardiovascular: Reports: No Symptoms Endocrine: Reports: No Symptoms : Reports: No Symptoms Musculoskeletal: Reports: No Symptoms Skin: Reports: No Symptoms Neurological: Reports: No Symptoms Psychiatric: Reports: No Symptoms Hematologic/Lymphatic: Reports: No Symptoms ED EXAM, GENERAL - Physical Exam Exam: See Below Exam Limited By: No Limitations General Appearance: Alert, WD/WN, No Apparent Distress Eye Exam: Bilateral Eye: EOMI, PERRL Head: Atraumatic, Normocephalic Neck: Normal Inspection, Supple, Non-Tender Respiratory/Chest: No Respiratory Distress, Lungs Clear, Normal Breath Sounds, No Accessory Muscle Use, Chest Non-Tender Cardiovascular: Normal Peripheral Pulses, Regular Rate, Rhythm, No Edema GI/Abdominal: Tender, Abnormal Bowel Sounds (Male) Exam: No Hernia Back Exam: Normal Inspection, Full Range of Motion Extremities: Normal Inspection, Normal Range of Motion, Non-Tender, No Pedal Edema, Normal Capillary Refill Neurological: Alert, Oriented, Normal Gait Psychiatric: Normal Affect, Normal Mood Skin Exam: Warm, Dry, Intact, Normal Color Course - Vital Signs Last Recorded V/S: Last Vital Signs Temp 36.7 C 12/09/19 11:49 Pulse 63 12/09/19 11:49 Resp 18 12/09/19 11:49 BP 141/79 H 12/09/19 11:49 Pulse Ox 97 12/09/19 11:49 - Orders/Labs/Meds Labs: Laboratory Tests 12/09/19 12/09/19 Range/Units 12:07 12:07 WBC 3.7 L (4.0-10.0) x10^3/uL RBC 5.21 (4.5-6.0) x10^6/uL Hgb 14.9 (14.0-18.0) g/dL Hct 42.9 (40.0-52.0) % MCV 82.3 (78.0-93.0) fL MCH 28.6 (26.0-32.0) pg MCHC 34.7 (32.0-36.0) g/dL RDW Coeff of [place] 13.6 (10.0-15.0) % Plt Count 215 (130-400) x10^3/uL Neut % (Auto) 64.1 (50.0-80.0) % Lymph % (Auto) 26.0 (25.0-50.0) % [place] % (Auto) 6.0 (2.0-11.0) % Eos % (Auto) 2.5 (0.0-4.0) % Baso % (Auto) 1.4 H (0.2-1.2) % Sodium 145 (136-145) mmol/L Potassium 4.2 (3.5-5.1) mmol/L Chloride 108 H (98-107) mmol/L Carbon Dioxide 28 (21-32) mmol/L Anion Gap 13.2 (10-20) mmol/L BUN 12 (7-18) mg/dL Creatinine 1.0 (0.70-1.30) mg/dL Est Cr Clr Drug Dosing TNP Estimated GFR (MDRD) > 60 Glucose 82 (74-106) mg/dL Calcium 8.8 (8.5-10.1) mg/dL Corrected Calcium 9.12 (8.5-10.1) mg/dL Total Bilirubin 1.2 H (0.2-1.0) mg/dL AST 16 (15-37) U/L ALT 21 (16-63) U/L Alkaline Phosphatase 80 (46-116) U/L Creatine Kinase 59 (39-308) U/L Total Protein 6.9 (6.4-8.2) g/dL Albumin 3.6 (3.4-5.0) g/dL Globulin 3.3 Albumin/Globulin Ratio 1.09 Amylase 41 (25-115) U/L Lipase 87 (73-393) U/L Meds: Medications Discontinued Medications Generic Name Dose Route Start Last Admin Trade Name Freq PRN Reason Stop Dose Admin Al Hydroxide/Mg Hydroxide 30 ml 12/09/19 11:57 12/09/19 12:23 Gi Cocktail PO 12/09/19 11:58 30 ml ONETIME ONE Administration Iopamidol 100 ml 12/09/19 12:51 12/09/19 12:58 Isovue-300 (61%) IVPUSH 12/09/19 12:52 100 ml ONETIME ONE Administration Departure - Departure Time of Disposition: 13:55 Disposition: Home, Self-Care 01 Condition: Good Clinical Impression: Gastritis Qualifiers: Gastritis type: unspecified gastritis Chronicity: acute Gastritis bleeding: without bleeding Qualified Code(s): K29.00 - Acute gastritis without bleeding - Discharge Information *PRESCRIPTION DRUG MONITORING PROGRAM REVIEWED*: Not Applicable *COPY OF PRESCRIPTION DRUG MONITORING REPORT IN PATIENT JAVAD: Not Applicable Instructions: Gastritis, Adult, [id number], Nonspecific Chest Pain, Easy-to- Read Forms: ED Department Discharge Additional Instructions: 1. Rest 2. Increase your water intake 3. The labs, EKG, CT scan completed in the emergency department today raw negative. 4. 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 Continue all at home medications as prescribed 6. Activity and diet as tolerated 7. Call with any questions or concerns Sepsis Event Note - Focused Exam Vital Signs: Vital Signs Temp Pulse Resp BP Pulse Ox 12/09/19 11:49 36.7 C 63 18 141/79 H 97 Date Exam was Performed: 12/09/19 Time Exam was Performed: 13:53 - Assessment/Plan Assessment:: 1. Abdominal pain 2. Left groin pain 3. Chest pain Plan: 1. X-ray completed in the ER. Results reviewed with patient 2. CT completed in the ER. Results reviewed with patient 3. Labs completed in ER. Results reviewed with patient 4. GI cocktail given to the patient emergency department with relief noted within minutes of taking 5. Patient denies having any other concerns or complaints on his ready for discharge 6. Education regarding rest, activity, diet, [id number] medication, and follow-up care was provided 7. All questions and concerns addressed with the patient prior to discharge
[2019-12-09 12:33] LABS: CHLORIDE,CL 108 mmol/L (98-107); SODIUM,NA 145 mmol/L (136-145)
[2019-12-09 12:39] LABS: ANION GAP 13.2 mmol/L (10-20)
[2019-12-09] MEDS ORDERED: Iopamidol 612 MG/ML 100 ML Bottle IVPUSH ONE (12:51)
--- NOTE | 2019-12-09 13:14 | CR ---
[id number] RAD/RAD Chest PA or AP 1V EXAM: RAD Chest PA or AP 1V INDICATION: CHEST PAIN. COMPARISON: February 15, 2019. DISCUSSION: Cardiomediastinal silhouette is stable in size and contour. No infiltrate, effusion, pneumothorax, or edema. Left basilar subsegmental atelectasis and/or scarring. IMPRESSION: No acute cardiopulmonary abnormality. Mk Jones DO 12/09/19 1313 Thank you for allowing us to participate in the care of your patient.
--- NOTE | 2019-12-09 13:42 | CT ---
[id number] CT/CT Abdomen Pelvis W IV EXAM: ABDOMEN AND PELVIS CT WITH CONTRAST INDICATION: Abdominal pain. COMPARISON: June 22, 2019. DISCUSSION: Small to moderate fat-containing umbilical and bilateral inguinal hernias. Scattered colonic diverticula without evidence of diverticulitis. 8 x 4 mm nonobstructing calculus upper pole right kidney. A subcentimeter hypodensity in the lower pole of the right kidney is too small to further characterize, likely represents a small cyst. Mild prostatomegaly. Borderline cardiomegaly. The liver, gallbladder, spleen, pancreas, adrenal glands, left kidney, small bowel and the appendix are normal in appearance. No adenopathy, free air free fluid. The osseous structures are unremarkable. IMPRESSION: 1. No acute findings. Franco Hamilton MD 12/09/19 9520 Thank you for allowing us to participate in the care of your patient.
[2019-12-09 14:09] VITALS: BP 132/84; PULSE 78
== END 2019-12-09 14:10 | disposition home or self-care (01) ==
LOC: VM.ED 11:49
DX: K29.00 Acute gastritis without bleeding (principal); E03.9 Hypothyroidism, unspecified; Z79.899 Other long term (current) drug therapy
CPT/HCPCS: 36415; 71045; 74177; 80053; 82150; 82550; 83690; 84484; 85025; 99285-25; A9270-GY; Q9967

== ENCOUNTER 2020-01-17 12:49 | Emergency (ER) | payer MEDICAID ==
[2020-01-17] MEDS ORDERED: Sodium Chloride 0.9% 10 ML Syringe FLUSH PRN (13:18)
[2020-01-17] MEDS ORDERED: Ondansetron 4 MG/2 ML SDV IVPUSH ONE (13:21)
[2020-01-17] MEDS ORDERED: Sodium Chloride 0.9% 1,000 ML IV ONE ×2 (13:21→14:39)
--- NOTE | 2020-01-17 13:46 | EDM.PDOC ---
ED HPI GENERAL MEDICAL PROBLEM - General Stated Complaint: TORSO HURTING, NAUSEA Time Seen by Provider: 01/17/20 13:00 Source of Information: Reports: Patient History Limitations: Reports: No Limitations - History of Present Illness INITIAL COMMENTS - FREE TEXT/NARRATIVE: Pt. presents to ER with numerous complaints. Pt. states that he underwent R inguinal hernia repair on 01/12/22. Pt. states that he did well postoperatively, but states over the past 36 hours, the patient has been experiencing nausea, abdominal cramping, chest pain, and generally not feeling well. He has not been checking his temp. No vomiting. He thinks he may be constipated. He states that his BMs have been smaller than normal and states that he had one today. Denies any bloody stools. No black or tarry stools. He states that the discomfort is located in the upper abd. area with radiation into the chest. Denies any jaw, arm, neck or back pain. Denies cough. No rhinorrhea or congestion. Denies any vomiting. Pt. states be has been afebrile. No ill contacts. Denies any dysuria. Onset Date: 01/16/20 Location: Reports: Chest, Abdomen Quality: Reports: Ache Severity: Moderate Improves with: Reports: Rest Worsens with: Reports: Eating Context: Denies: Sick Contact Associated Symptoms: Reports: Chest Pain, Loss of Appetite, Nausea/Vomiting, Syncope, Weakness. Denies: Diaphoresis, Fever/Chills, Headaches, Malaise, Seizure, Shortness of Breath Bilateral Abdominal Pain Score (Numeric/FACES): 7 - Related Data Allergies Allergy/AdvReac Type Severity Reaction Status Date / Time No Known Allergies Allergy Verified 01/17/20 13:44 Home Meds: Home Meds Dicyclomine [Bentyl] 10 mg PO TID PRN #30 cap 02/05/17 [Rx] Levothyroxine Sodium [Synthroid] 25 mcg PO ACBREAKFAST 09/19/17 [History] Sertraline HCl [Zoloft] 75 mg PO DAILY 09/19/17 [History] Melatonin 3 mg PO BEDTIME 02/15/19 [History] Pantoprazole Sodium [Protonix] 20 mg PO BID 02/15/19 [History] Diltiazem HCl [Cardizem] 60 mg TID 06/22/19 [History] Past Medical History - Past Health History Medical/Surgical History: Denies Medical/Surgical History Cardiovascular History: Reports: Other (See Below) Other Cardiovascular History: costochondral chest pain Gastrointestinal History: Reports: Other (See Below) Other Gastrointestinal History: esophageal dysmotility. L sided abd pain Genitourinary History: Reports: Other (See Below) Other Genitourinary History: nephrolithiasis Neurological History: Reports: Other (See Below) Other Neuro History: developmental delay disorder Psychiatric History: Reports: Depression Endocrine/Metabolic History: Reports: Hypothyroidism - Past Surgical History GI Surgical History: Reports: EGD Other GI Surgeries/Procedures: EGD 02/11/19 Other Musculoskeletal Surgeries/Procedures:: hammer toe surgery as a child Social & Family History - Living Situation & Occupation Living situation: Reports: Single ED ROS GENERAL - Review of Systems Review Of Systems: See Below Constitutional: Reports: No Symptoms HEENT: Reports: No Symptoms Respiratory: Reports: No Symptoms Cardiovascular: Reports: No Symptoms Endocrine: Reports: No Symptoms GI/Abdominal: Reports: Abdominal Pain : Reports: No Symptoms Musculoskeletal: Reports: No Symptoms Skin: Reports: No Symptoms. Denies: Cyanosis, Jaundice, Dryness, Bruising, Pruritis, Rash, Erythema Neurological: Reports: No Symptoms Psychiatric: Reports: No Symptoms Hematologic/Lymphatic: Reports: No Symptoms Immunologic: Reports: No Symptoms ED EXAM, GENERAL - Physical Exam Exam: See Below Exam Limited By: No Limitations General Appearance: Alert, WD/WN, No Apparent Distress Nose: Normal Inspection, Normal Mucosa, No Blood Throat/Mouth: Normal Inspection, Normal Lips, Normal Teeth, Normal Gums, Normal Oropharynx, Normal Voice, No Airway Compromise Head: Atraumatic, Normocephalic Neck: Normal Inspection, Supple, Non-Tender, Full Range of Motion Respiratory/Chest: No Respiratory Distress, Lungs Clear, Normal Breath Sounds, No Accessory Muscle Use, Chest Non-Tender Cardiovascular: Normal Peripheral Pulses, Regular Rate, Rhythm, No Edema, No Gallop, No JVD, No Murmur Peripheral Pulses: 4+: Radial (L) GI/Abdominal: Normal Bowel Sounds, Soft, Non-Tender, No Organomegaly, No Mass, Distended, Tender. No: Rigid, Rebound (Male) Exam: Deferred Rectal (Males) Exam: Deferred Back Exam: Normal Inspection, Full Range of Motion Extremities: Normal Inspection, Normal Range of Motion, Non-Tender Neurological: Alert, Oriented, CN II-XII Intact, Normal Cognition, Normal Gait, Normal Reflexes, No Motor/Sensory Deficits Psychiatric: Normal Affect, Normal Mood Skin Exam: Warm, Dry, Intact, Normal Color, No Rash Course - Vital Signs Last Recorded V/S: Last Vital Signs Temp 36.2 C 01/17/20 13:00 Pulse 60 01/17/20 13:00 Resp 16 01/17/20 13:00 BP 143/68 H 01/17/20 13:00 Pulse Ox 97 01/17/20 13:00 - Orders/Labs/Meds Orders: Active Orders 24 hr Category Date Time Status EKG Documentation Completion [RC] STAT Care 01/17/20 13:19 Active Sodium Chloride 0.9% @ Wide Open(1,000ml) Med 01/17/20 14:39 Ordered Sodium Chloride 0.9% [Normal Saline] 1,000 ml IV ONETIME Sodium Chloride 0.9% [Saline Flush] Med 01/17/20 13:18 Active 10 ml FLUSH ASDIRECTED PRN Peripheral IV Insertion Adult [OM.PC] Routine Oth 01/17/20 13:19 Ordered Medication Orders Sodium Chloride (Normal Saline) 1,000 mls @ 999 mls/hr IV ONETIME ONE Stop: 01/17/20 15:39 Last Admin: 01/17/20 14:40 Dose: 999 mls/hr Sodium Chloride (Saline Flush) 10 ml FLUSH ASDIRECTED PRN PRN Reason: Keep Vein Open Labs: Laboratory Tests 01/17/20 01/17/20 01/17/20 Range/Units 13:15 13:15 13:15 WBC 5.5 (4.0-10.0) x10^3/uL RBC 5.28 (4.5-6.0) x10^6/uL Hgb 15.2 (14.0-18.0) g/dL Hct 44.3 (40.0-52.0) % MCV 83.9 (78.0-93.0) fL MCH 28.8 (26.0-32.0) pg MCHC 34.3 (32.0-36.0) g/dL RDW Coeff of [place] 13.8 (10.0-15.0) % Plt Count 237 (130-400) x10^3/uL Neut % (Auto) 62.2 (50.0-80.0) % Lymph % (Auto) 26.2 (25.0-50.0) % [place] % (Auto) 6.8 (2.0-11.0) % Eos % (Auto) 3.7 (0.0-4.0) % Baso % (Auto) 1.1 (0.2-1.2) % PT 9.6 L (10.0-12.8) SEC INR 0.8 L (2.0-3.5) Sodium 140 (136-145) mmol/L Potassium 4.3 (3.5-5.1) mmol/L Chloride 101 (98-107) mmol/L Carbon Dioxide 30 (21-32) mmol/L Anion Gap 13.3 (10-20) mmol/L BUN 20 H (7-18) mg/dL Creatinine 1.1 (0.70-1.30) mg/dL Est Cr Clr Drug Dosing 64.45 mL/min Estimated GFR (MDRD) > 60 Glucose 83 (74-106) mg/dL Calcium 9.0 (8.5-10.1) mg/dL Corrected Calcium 9.32 (8.5-10.1) mg/dL Phosphorus 4.1 (2.6-4.7) mg/dL Magnesium 2.2 (1.8-2.4) mg/dL Total Bilirubin 1.1 H (0.2-1.0) mg/dL AST 32 (15-37) U/L ALT 74 H (16-63) U/L Alkaline Phosphatase 112 (46-116) U/L Troponin I < 0.017 (<=0.056) ng/mL C-Reactive Protein 1.1 H (<=0.9) mg/dL Total Protein 7.4 (6.4-8.2) g/dL Albumin 3.6 (3.4-5.0) g/dL Globulin 3.8 Albumin/Globulin Ratio 0.95 Urine Color (YELLOW) Urine Appearance (CLEAR) Urine pH (5.0-8.0) Ur Specific [place] Urine Protein (NEGATIVE) mg/dL Urine Glucose (UA) (NEGATIVE) mg/dL Urine Ketones (NEGATIVE) mg/dL Urine Occult Blood (NEGATIVE) Urine Nitrite (NEGATIVE) Urine Bilirubin (NEGATIVE) Urine Urobilinogen (0.2) EU/dL Ur Leukocyte Esterase (NEGATIVE) Urine RBC (NOT SEEN) /HPF Urine WBC (NOT SEEN) /HPF Ur Squamous Epith Cells (NEGATIVE) /HPF Urine Bacteria (NEGATIVE) /HPF Urine Mucus (NEGATIVE) /LPF 01/17/20 Range/Units 13:32 WBC (4.0-10.0) x10^3/uL RBC (4.5-6.0) x10^6/uL Hgb (14.0-18.0) g/dL Hct (40.0-52.0) % MCV (78.0-93.0) fL MCH (26.0-32.0) pg MCHC (32.0-36.0) g/dL RDW Coeff of [place] (10.0-15.0) % Plt Count (130-400) x10^3/uL Neut % (Auto) (50.0-80.0) % Lymph % (Auto) (25.0-50.0) % [place] % (Auto) (2.0-11.0) % Eos % (Auto) (0.0-4.0) % Baso % (Auto) (0.2-1.2) % PT (10.0-12.8) SEC INR (2.0-3.5) Sodium (136-145) mmol/L Potassium (3.5-5.1) mmol/L Chloride (98-107) mmol/L Carbon Dioxide (21-32) mmol/L Anion Gap (10-20) mmol/L BUN (7-18) mg/dL Creatinine (0.70-1.30) mg/dL Est Cr Clr Drug Dosing mL/min Estimated GFR (MDRD) Glucose (74-106) mg/dL Calcium (8.5-10.1) mg/dL Corrected Calcium (8.5-10.1) mg/dL Phosphorus (2.6-4.7) mg/dL Magnesium (1.8-2.4) mg/dL Total Bilirubin (0.2-1.0) mg/dL AST (15-37) U/L ALT (16-63) U/L Alkaline Phosphatase (46-116) U/L Troponin I (<=0.056) ng/mL C-Reactive Protein (<=0.9) mg/dL Total Protein (6.4-8.2) g/dL Albumin (3.4-5.0) g/dL Globulin Albumin/Globulin Ratio Urine Color Dark yellow H (YELLOW) Urine Appearance Clear (CLEAR) Urine pH 6.0 (5.0-8.0) Ur Specific [place] 1.025 Urine Protein Negative (NEGATIVE) mg/dL Urine Glucose (UA) Negative (NEGATIVE) mg/dL Urine Ketones Negative (NEGATIVE) mg/dL Urine Occult Blood Negative (NEGATIVE) Urine Nitrite Negative (NEGATIVE) Urine Bilirubin Negative (NEGATIVE) Urine Urobilinogen 0.2 (0.2) EU/dL Ur Leukocyte Esterase Negative (NEGATIVE) Urine RBC 0-5 (NOT SEEN) /HPF Urine WBC Not seen (NOT SEEN) /HPF Ur Squamous Epith Cells Not seen (NEGATIVE) /HPF Urine Bacteria Rare (NEGATIVE) /HPF Urine Mucus Not seen (NEGATIVE) /LPF Meds: Medications Generic Name Dose Route Start Last Admin Trade Name Freq PRN Reason Stop Dose Admin Sodium Chloride 1,000 mls @ 999 mls/hr 01/17/20 14:39 01/17/20 14:40 Normal Saline IV 01/17/20 15:39 999 mls/hr ONETIME ONE Administration Sodium Chloride 10 ml 01/17/20 13:18 Saline Flush FLUSH ASDIRECTED PRN Keep Vein Open Discontinued Medications Generic Name Dose Route Start Last Admin Trade Name Freq PRN Reason Stop Dose Admin Sodium Chloride 1,000 mls @ 1,000 mls/hr 01/17/20 13:21 01/17/20 13:36 Normal Saline IV 01/17/20 14:20 1,000 mls/hr .BOLUS ONE Administration Metoclopramide HCl 10 mg 01/17/20 14:26 01/17/20 14:36 Reglan IVPUSH 01/17/20 14:27 10 mg ONETIME ONE Administration Ondansetron HCl 4 mg 01/17/20 13:21 01/17/20 13:36 Zofran IVPUSH 01/17/20 13:22 4 mg ONETIME ONE Administration - Radiology Interpretation Free Text/Narrative:: possible ileus. No obstruction. No free air. Departure - Departure Time of Disposition: 15:29 Disposition: Home, Self-Care 01 Clinical Impression: Ileus, Dehydration - Discharge Information Instructions: Metoclopramide tablets, Ileus Referrals: Glenna Ribeiro PA-C [Primary Care Provider] - Forms: ED Department Discharge Additional Instructions: Home to rest. Reglan 10mg 1 every 4-6 hours as needed for nausea/vomiting No solid food tonight, only clear liquids. You can start adding bland foods tomorrow afternoon. Follow-up in clinic in 7-10 days. Sepsis Event Note - Focused Exam Vital Signs: Vital Signs Temp Pulse Resp BP Pulse Ox 01/17/20 13:00 36.2 C 60 16 143/68 H 97 Date Exam was Performed: 01/17/20 Time Exam was Performed: 15:28 - My Orders Last 24 Hours: My Active Orders 01/17/20 13:18 Sodium Chloride 0.9% [Saline Flush] 10 ml FLUSH ASDIRECTED PRN 01/17/20 13:19 EKG Documentation Completion [RC] STAT Peripheral IV Insertion Adult [OM.PC] Routine 01/17/20 14:39 Sodium Chloride 0.9% @ Wide Open(1,000ml) Sodium Chloride 0.9% [Normal Saline] 1 ,000 ml IV ONETIME - Assessment/Plan Last 24 Hours: My Active Orders 01/17/20 13:18 Sodium Chloride 0.9% [Saline Flush] 10 ml FLUSH ASDIRECTED PRN 01/17/20 13:19 EKG Documentation Completion [RC] STAT Peripheral IV Insertion Adult [OM.PC] Routine 01/17/20 14:39 Sodium Chloride 0.9% @ Wide Open(1,000ml) Sodium Chloride 0.9% [Normal Saline] 1 ,000 ml IV ONETIME Plan: Home to rest. Reglan 10mg 1 every 4-6 hours as needed for nausea/vomiting No solid food tonight, only clear liquids. You can start adding bland foods tomorrow afternoon. Follow-up in clinic in 7-10 days.
[2020-01-17 13:49] VITALS: BP 143/68; PULSE 60
[2020-01-17 14:06] LABS: ANION GAP 13.3 mmol/L (10-20); CHLORIDE,CL 101 mmol/L (98-107); SODIUM,NA 140 mmol/L (136-145)
[2020-01-17] MEDS ORDERED: Metoclopramide 10 MG/2 ML SDV IVPUSH ONE (14:26)
--- NOTE | 2020-01-17 14:40 | CR ---
[id number] RAD/RAD Abdomen 3V EXAM: RAD Abdomen 3V INDICATION: ABDOMINAL PAIN, FATIGUE, RECENT HERNIA OPERATION. COMPARISON: None. DISCUSSION: The lungs are clear. Multiple prominent loops of small and large bowel. There is gas and stool within the colon. No free air. IMPRESSION: Findings most consistent with ileus at this time. Mk Jones DO 01/17/20 [id number] Thank you for allowing us to participate in the care of your patient.
== END 2020-01-17 16:05 | disposition home or self-care (01) ==
LOC: VM.ED 12:49
DX: K56.7 Ileus, unspecified (principal); E86.0 Dehydration; F32.9 Major depressive disorder, single episode, unspecified; E03.9 Hypothyroidism, unspecified; Z79.899 Other long term (current) drug therapy; Z98.890 Other specified postprocedural states
CPT/HCPCS: 74022; 80053; 81001; 83735; 84100; 84484; 85025; 85610; 86140; 93005; 96361; 96374; 96375; 99285; J2405; J2765; J7030; 36415

== ENCOUNTER 2020-08-22 00:40 | Emergency (ER) | payer MEDICAID ==
[2020-08-22] MEDS ORDERED: Sodium Chloride 0.9% 10 ML Syringe FLUSH PRN (01:09)
--- NOTE | 2020-08-22 01:31 | EDM.PDOC ---
ED HPI GENERAL MEDICAL PROBLEM - General Chief Complaint: Abdominal Pain Stated Complaint: Abdominal/flank pain Time Seen by Provider: 08/22/20 01:07 Source of Information: Reports: Patient - History of Present Illness INITIAL COMMENTS - FREE TEXT/NARRATIVE: Yannick is a 60 y/o male who arrives to the ER by EMS with abdominal pain. He reports that he was sitting in his chair at home and he started to get pain i his abdomen. The pain is on the right side, but then extends all the way across to the left. No fever. He reports that he had some nausea prior to calling 911. He has not eaten much the last few days since he had dental surgery. He denies constipation. Rates the pain 07/02. Right lateral abdomen, across lower abdomen Pain Score (Numeric/FACES): 8 - Related Data Allergies Allergy/AdvReac Type Severity Reaction Status Date / Time No Known Allergies Allergy Verified 08/22/20 01:35 Home Meds: Home Meds Dicyclomine [Bentyl] 10 mg PO TID PRN #30 cap 02/05/17 [Rx] Levothyroxine Sodium [Synthroid] 25 mcg PO ACBREAKFAST 09/19/17 [History] Sertraline HCl [Zoloft] 75 mg PO DAILY 09/19/17 [History] Melatonin 3 mg PO BEDTIME 02/15/19 [History] Pantoprazole Sodium [Protonix] 20 mg PO BID 02/15/19 [History] dilTIAZem HCL [Cardizem] 60 mg TID 06/22/19 [History] Tamsulosin [Flomax] 0.4 mg PO DAILY #30 cap.er 08/22/20 [Rx] Past Medical History - Past Health History Medical/Surgical History: Denies Medical/Surgical History Cardiovascular History: Reports: Other (See Below) Other Cardiovascular History: costochondral chest pain Gastrointestinal History: Reports: Other (See Below) Other Gastrointestinal History: esophageal dysmotility. L sided abd pain Genitourinary History: Reports: Other (See Below) Other Genitourinary History: nephrolithiasis Neurological History: Reports: Other (See Below) Other Neuro History: developmental delay disorder Psychiatric History: Reports: Depression Endocrine/Metabolic History: Reports: Hypothyroidism - Past Surgical History GI Surgical History: Reports: EGD Other GI Surgeries/Procedures: EGD 02/11/19 Other Musculoskeletal Surgeries/Procedures:: hammer toe surgery as a child Social & Family History - Living Situation & Occupation Living situation: Reports: Single Review of Systems - Review of Systems Review Of Systems: See Below Constitutional: Reports: No Symptoms Eyes: Reports: No Symptoms Ears: Reports: No Symptoms Nose: Reports: No Symptoms Mouth/Throat: Reports: No Symptoms Respiratory: Reports: No Symptoms Cardiovascular: Reports: No Symptoms GI/Abdominal: Reports: Abdominal Pain, Nausea, Vomiting Genitourinary: Reports: No Symptoms Musculoskeletal: Reports: No Symptoms Skin: Reports: No Symptoms Neurological: Reports: No Symptoms Psychiatric: Reports: No Symptoms ED EXAM, GENERAL - Physical Exam Exam: See Below General Appearance: Alert, WD/WN, No Apparent Distress (adult male) Eye Exam: Bilateral Eye: PERRL Ears: Normal External Exam, Normal Canal, Hearing Grossly Normal, Normal TMs Nose: Normal Inspection, Normal Mucosa Throat/Mouth: Normal Inspection, Normal Teeth, Normal Voice, No Airway Compromise Head: Atraumatic, Normocephalic Neck: Normal Inspection, Supple Respiratory/Chest: No Respiratory Distress, Lungs Clear, Normal Breath Sounds, Chest Non-Tender Cardiovascular: Normal Peripheral Pulses, Regular Rate, Rhythm, No Murmur Course - Vital Signs Text/Narrative:: 0106 The patient was seen by the SUCTION [employer] DRIER OPERATOR. Labs ordered. He was given a liter of NS, Fentanyl 50mcg IVP and Zofran 4 mg IVP. Labs reviewed. Note blood in urine, but no protein. WBC mildly elevated with mild neutrophil elevation. CT Abd/Pelvis W ordered. 0320 CT results reviewed. Note 2mm recently passed renal calculus in the urinary bladder. CT report notes mild right hydronephrosis and an intrarenal cyst 8mm and a small cyst. Will place on Flomax to assist passage of the stone from the kidney. Will have patient follow up with his PCP for recheck and Urology referral. Patient and family were given discharge instructions and he left the ER ins stable condition. Last Recorded V/S: Last Vital Signs Temp 35.9 C L 08/22/20 00:40 Pulse 63 08/22/20 00:40 Resp 16 08/22/20 00:40 BP 122/76 08/22/20 00:40 Pulse Ox 97 08/22/20 00:40 - Orders/Labs/Meds Orders: Active Orders 24 hr Category Date Time Status Abdomen Pelvis w Cont [CT] Stat Exams 08/22/20 01:53 Taken UA RFX MARIELENA AND CULT IF INDIC [URIN] Stat Lab 08/22/20 01:35 Ordered Sodium Chloride 0.9% [Saline Flush] Med 08/22/20 01:09 Active 10 ml FLUSH ASDIRECTED PRN Saline Lock Insert [OM.PC] Stat Oth 08/22/20 01:10 Ordered Medication Orders Sodium Chloride (Saline Flush) 10 ml FLUSH ASDIRECTED PRN PRN Reason: Keep Vein Open Labs: Laboratory Tests 08/22/20 08/22/20 08/22/20 Range/Units 01:30 01:39 01:39 WBC 10.1 H (4.0-10.0) x10^3/uL RBC 5.35 (4.5-6.0) x10^6/uL Hgb 15.3 (14.0-18.0) g/dL Hct 43.9 (40.0-52.0) % MCV 82.1 (78.0-93.0) fL MCH 28.6 (26.0-32.0) pg MCHC 34.9 (32.0-36.0) g/dL RDW Coeff of [place] 13.6 (10.0-15.0) % Plt Count 213 (130-400) x10^3/uL Neut % (Auto) 81.6 H (50.0-80.0) % Lymph % (Auto) 10.8 L (25.0-50.0) % [place] % (Auto) 6.9 (2.0-11.0) % Eos % (Auto) 0.5 (0.0-4.0) % Baso % (Auto) 0.2 (0.2-1.2) % Sodium (136-145) mmol/L Potassium (3.5-5.1) mmol/L Chloride (98-107) mmol/L Carbon Dioxide (21-32) mmol/L Anion Gap (10-20) mmol/L BUN (7-18) mg/dL Creatinine (0.70-1.30) mg/dL Est Cr Clr Drug Dosing mL/min Estimated GFR (MDRD) Glucose (74-106) mg/dL Calcium (8.5-10.1) mg/dL Corrected Calcium (8.5-10.1) mg/dL Magnesium 2.2 (1.8-2.4) mg/dL Total Bilirubin (0.2-1.0) mg/dL AST (15-37) U/L ALT (16-63) U/L Alkaline Phosphatase (46-116) U/L Total Protein (6.4-8.2) g/dL Albumin (3.4-5.0) g/dL Globulin Albumin/Globulin Ratio Amylase 56 (25-115) U/L Lipase 147 (73-393) U/L Urine Color Yellow (YELLOW) Urine Appearance Slightly cloudy H (CLEAR) Urine pH 5.5 (5.0-8.0) Ur Specific [place] 1.025 Urine Protein Negative (NEGATIVE) mg/dL Urine Glucose (UA) Negative (NEGATIVE) mg/dL Urine Ketones Negative (NEGATIVE) mg/dL Urine Occult Blood Moderate H (NEGATIVE) Urine Nitrite Negative (NEGATIVE) Urine Bilirubin Negative (NEGATIVE) Urine Urobilinogen 1.0 (0.2) EU/dL Ur Leukocyte Esterase Negative (NEGATIVE) Urine RBC 10-20 H (NOT SEEN) /HPF Urine WBC 0-5 (NOT SEEN) /HPF Ur Squamous Epith Cells Not seen (NEGATIVE) /HPF Urine Bacteria Rare (NEGATIVE) /HPF Urine Mucus Few H (NEGATIVE) /LPF 08/22/20 Range/Units 01:39 WBC (4.0-10.0) x10^3/uL RBC (4.5-6.0) x10^6/uL Hgb (14.0-18.0) g/dL Hct (40.0-52.0) % MCV (78.0-93.0) fL MCH (26.0-32.0) pg MCHC (32.0-36.0) g/dL RDW Coeff of [place] (10.0-15.0) % Plt Count (130-400) x10^3/uL Neut % (Auto) (50.0-80.0) % Lymph % (Auto) (25.0-50.0) % [place] % (Auto) (2.0-11.0) % Eos % (Auto) (0.0-4.0) % Baso % (Auto) (0.2-1.2) % Sodium 139 (136-145) mmol/L Potassium 4.6 (3.5-5.1) mmol/L Chloride 101 (98-107) mmol/L Carbon Dioxide 32 (21-32) mmol/L Anion Gap 10.6 (10-20) mmol/L BUN 21 H (7-18) mg/dL Creatinine 1.2 (0.70-1.30) mg/dL Est Cr Clr Drug Dosing 58.37 mL/min Estimated GFR (MDRD) > 60 Glucose 112 H (74-106) mg/dL Calcium 9.0 (8.5-10.1) mg/dL Corrected Calcium 8.84 (8.5-10.1) mg/dL Magnesium (1.8-2.4) mg/dL Total Bilirubin 1.6 H (0.2-1.0) mg/dL AST 17 (15-37) U/L ALT 32 (16-63) U/L Alkaline Phosphatase 83 (46-116) U/L Total Protein 7.4 (6.4-8.2) g/dL Albumin 4.2 (3.4-5.0) g/dL Globulin 3.2 Albumin/Globulin Ratio 1.31 Amylase (25-115) U/L Lipase (73-393) U/L Urine Color (YELLOW) Urine Appearance (CLEAR) Urine pH (5.0-8.0) Ur Specific [place] Urine Protein (NEGATIVE) mg/dL Urine Glucose (UA) (NEGATIVE) mg/dL Urine Ketones (NEGATIVE) mg/dL Urine Occult Blood (NEGATIVE) Urine Nitrite (NEGATIVE) Urine Bilirubin (NEGATIVE) Urine Urobilinogen (0.2) EU/dL Ur Leukocyte Esterase (NEGATIVE) Urine RBC (NOT SEEN) /HPF Urine WBC (NOT SEEN) /HPF Ur Squamous Epith Cells (NEGATIVE) /HPF Urine Bacteria (NEGATIVE) /HPF Urine Mucus (NEGATIVE) /LPF Meds: Medications Generic Name Dose Route Start Last Admin Trade Name Freq PRN Reason Stop Dose Admin Sodium Chloride 10 ml 08/22/20 01:09 Saline Flush FLUSH ASDIRECTED PRN Keep Vein Open Discontinued Medications Generic Name Dose Route Start Last Admin Trade Name Freq PRN Reason Stop Dose Admin Fentanyl 50 mcg 08/22/20 01:24 08/22/20 01:52 Sublimaze IVPUSH 08/22/20 01:25 50 mcg ONETIME ONE Administration Sodium Chloride 1,000 mls @ 999 mls/hr 08/22/20 01:24 08/22/20 01:45 Normal Saline IV 08/22/20 02:24 999 mls/hr ONETIME ONE Administration Iopamidol 100 ml 08/22/20 02:22 08/22/20 02:43 Isovue-300 (61%) IVPUSH 08/22/20 02:23 100 ml ONETIME ONE Administration Ondansetron HCl 4 mg 08/22/20 01:24 08/22/20 01:50 Zofran IVPUSH 08/22/20 01:25 4 mg ONETIME ONE Administration - Radiology Interpretation Free Text/Narrative:: CT Abd/Pelvis W=mild right hydronephrosis and no obstructing stone noted, recently passed calculus 2mm in bladder. CT Results Date: 08/22/20 Departure - Departure Time of Disposition: 03:33 Disposition: Home, Self-Care 01 Condition: Good Clinical Impression: Renal calculi - Discharge Information Prescriptions: Tamsulosin [Flomax] 0.4 mg PO DAILY #30 cap.er Instructions: Kidney Stones, [id number] Referrals: [facility] [Primary Care Provider] - Glenna Ribeiro PA-C [Physician Electric Motor Repair Supervisor] - Forms: ED Department Discharge Additional Instructions: -Start the Tamsulosin tomorrow. -Your stone is in your bladder and should pass soon, but some patients have some discomfort. -Drink plenty of fluids -Strain your urine the next few days to attempt to locate the stone. -Make an appt to see MINDI Rossi in 1 week for recheck, sooner if other concerns -Return to the ER as needed Sepsis Event Note (ED) - Focused Exam Vital Signs: Vital Signs Temp Pulse Resp BP Pulse Ox 08/22/20 00:40 35.9 C L 63 16 122/76 97 - My Orders Last 24 Hours: My Active Orders 08/22/20 01:09 Sodium Chloride 0.9% [Saline Flush] 10 ml FLUSH ASDIRECTED PRN 08/22/20 01:10 Saline Lock Insert [OM.PC] Stat 08/22/20 01:35 UA RFX MARIELENA AND CULT IF INDIC [URIN] Stat 08/22/20 01:53 Abdomen Pelvis w Cont [CT] Stat - Assessment/Plan Last 24 Hours: My Active Orders 08/22/20 01:09 Sodium Chloride 0.9% [Saline Flush] 10 ml FLUSH ASDIRECTED PRN 08/22/20 01:10 Saline Lock Insert [OM.PC] Stat 08/22/20 01:35 UA RFX MARIELENA AND CULT IF INDIC [URIN] Stat 08/22/20 01:53 Abdomen Pelvis w Cont [CT] Stat
[2020-08-22 01:35] VITALS: BP 122/76; PULSE 63
[2020-08-22] MEDS: Sodium Chloride 0.9% 1,000 ML IV ONE (01:45)
[2020-08-22] MEDS: Ondansetron 4 MG/2 ML SDV IVPUSH ONE (01:50)
[2020-08-22] MEDS: fentaNYL 100 MCG/2 ML SDV IVPUSH ONE (01:52)
[2020-08-22 01:59] LABS: ANION GAP 10.6 mmol/L (10-20); CHLORIDE,CL 101 mmol/L (98-107); SODIUM,NA 139 mmol/L (136-145)
[2020-08-22] MEDS: Iopamidol 612 MG/ML 100 ML Bottle IVPUSH ONE (02:43)
--- NOTE | 2020-08-22 09:00 | CT ---
[id number] CT/CT Abdomen Pelvis W IV EXAM: CT Abdomen Pelvis W IV CLINICAL DATA: ABDOMINAL PAIN COMPARISON STUDY: December 09, 2019. FINDINGS: Lung bases are clear. Liver, gallbladder, spleen, pancreas, and adrenal glands are unremarkable. Mildly dilated portal venous system. Main portal vein measures up to 17 mm in diameter. No evidence of thrombosis or lesion. No radiographic evidence of portal hypertension. Findings are similar to the prior examination and uncertain etiology or clinical significance. 2 closely approximated nonobstructing calculi in the left kidney superior pole. Largest measures approximately 8 mm in diameter. Smaller measures between 2-3 mm. No ureteral calculi or evidence of urinary tract obstruction. Left inguinal hernia containing fat and a small portion of the urinary bladder. Hernia was present on the prior examination, however the bladder was not involved at that time. There has been repair of the right inguinal hernia since the prior examination. No evidence of recurrent herniation. Small fat-containing umbilical hernia, similar to the prior examination. Few scattered colonic diverticula. No evidence of acute diverticulitis. No colitis. No small bowel obstruction or inflammation. Spondylosis. No fracture or osseous lesion. IMPRESSION: Left inguinal hernia containing fat and a small portion of the urinary bladder. Hernia was present on the prior examination, however bladder was not involved at that time. Repair of previously seen right inguinal hernia. No evidence of recurrent herniation. Other findings are described above. Chao Butler MD 08/22/20 0859 Thank you for allowing us to participate in the care of your patient.
== END 2020-08-22 04:05 | disposition home or self-care (01) ==
LOC: VM.ED 00:40
DX: N13.2 Hydronephrosis with renal and ureteral calculous obstruction (principal); F32.9 Major depressive disorder, single episode, unspecified; E03.9 Hypothyroidism, unspecified; Z79.899 Other long term (current) drug therapy
CPT/HCPCS: 36415; 74177; 80053; 81001; 82150; 82365; 83690; 83735; 85025; 96361; 96374; 96375; 99284; 99285-25; J2405; J3010; J7030; Q9967

== ENCOUNTER 2020-12-30 14:40 | Emergency (ER) | payer MEDICAID ==
[2020-12-30] MEDS ORDERED: Sodium Chloride 0.9% 10 ML Syringe FLUSH PRN (14:56)
[2020-12-30] MEDS ORDERED: Ketorolac 30 MG/ML SDV IVPUSH ONE (14:57)
--- NOTE | 2020-12-30 15:29 | EDM.PDOC ---
ED HPI GENERAL MEDICAL PROBLEM - General Stated Complaint: ER Time Seen by Provider: 12/30/20 14:51 Source of Information: Reports: Patient - History of Present Illness INITIAL COMMENTS - FREE TEXT/NARRATIVE: Yannick is a 60 y/o male who is brought to the ER by EMS for overall malaise. He reports that on Thursday night he started to get pain in his chest that are worse when he inhales. The pain is not necessarily worse with exertion. No SOB. He has not had much of an appetite for the last 2 days. He did get his second COVID vaccine on Thursday. No fevers. Chest Pain Score (Numeric/FACES): 7 Abdomen Pain Score (Numeric/FACES): 7 - Related Data Allergies Allergy/AdvReac Type Severity Reaction Status Date / Time No Known Allergies Allergy Verified 08/22/20 01:35 Home Meds: Home Meds Levothyroxine Sodium [Synthroid] 25 mcg PO ACBREAKFAST 09/19/17 [History] Sertraline HCl [Zoloft] 75 mg PO DAILY 09/19/17 [History] Melatonin 3 mg PO BEDTIME 02/15/19 [History] Pantoprazole Sodium [Protonix] 40 mg PO BID 02/15/19 [History] dilTIAZem HCL [Cardizem] 60 mg PO TID 06/22/19 [History] Acetaminophen/HYDROcodone [[place] 325-5 MG] 1 tab PO Q4H PRN 12/30/20 [History] Naproxen Sodium [Aleve] 220 mg PO BID PRN 12/30/20 [History] Ondansetron [Ondansetron ODT] 4 mg PO Q6H PRN #15 tab.rapdis 12/30/20 [Rx] polyethylene glycoL 3350 [MiraLAX] 17 gm PO DAILY PRN 12/30/20 [History] Past Medical History - Past Health History Medical/Surgical History: Denies Medical/Surgical History Cardiovascular History: Reports: Other (See Below) Other Cardiovascular History: costochondral chest pain Gastrointestinal History: Reports: Other (See Below) Other Gastrointestinal History: esophageal dysmotility. L sided abd pain Genitourinary History: Reports: Other (See Below) Other Genitourinary History: nephrolithiasis Neurological History: Reports: Other (See Below) Other Neuro History: developmental delay disorder Psychiatric History: Reports: Depression Endocrine/Metabolic History: Reports: Hypothyroidism - Past Surgical History GI Surgical History: Reports: EGD Other GI Surgeries/Procedures: EGD 02/11/19 Other Musculoskeletal Surgeries/Procedures:: hammer toe surgery as a child Social & Family History - Living Situation & Occupation Living situation: Reports: Single Review of Systems - Review of Systems Review Of Systems: See Below Constitutional: Reports: Weakness Eyes: Reports: No Symptoms Ears: Reports: No Symptoms Nose: Reports: No Symptoms Mouth/Throat: Reports: No Symptoms Respiratory: Reports: Pleuritic Chest Pain Cardiovascular: Reports: Chest Pain GI/Abdominal: Reports: Decreased Appetite Genitourinary: Reports: No Symptoms Musculoskeletal: Reports: Arm Pain (left arm at injection site) Skin: Reports: No Symptoms Neurological: Reports: No Symptoms Psychiatric: Reports: No Symptoms ED EXAM, GENERAL - Physical Exam Exam: See Below General Appearance: Alert, WD/WN (Adult male.), No Apparent Distress Eye Exam: Bilateral Eye: PERRL Ears: Normal External Exam, Normal Canal, Normal TMs Nose: Normal Inspection, Normal Mucosa Throat/Mouth: Normal Inspection, Normal Lips, Normal Voice Head: Atraumatic, Normocephalic Neck: Normal Inspection, Supple Respiratory/Chest: No Respiratory Distress, Lungs Clear, Normal Breath Sounds, Other (+Tender over chest region with palpation) Cardiovascular: Normal Peripheral Pulses, Regular Rate, Rhythm, No Murmur GI/Abdominal: Normal Bowel Sounds, Soft (Male) Exam: Deferred Rectal (Males) Exam: Deferred Back Exam: Normal Inspection, Full Range of Motion Extremities: Normal Inspection, Normal Range of Motion, Normal Capillary Refill, Other (Note approximately 2cm of erythema around vaccine site on left upper arm.) Neurological: Alert, Oriented, CN II-XII Intact, Normal Cognition, Normal Gait Psychiatric: Normal Affect, Normal Mood Skin Exam: Warm, Dry, Intact, Normal Color, Rash (note small erythematous rashed area to right side of neck region) #1 Interpretation EKG Date: 12/30/20 Time: 14:45 Rhythm: Other (Sinus Bradycardia) Rate (Beats/Min): 58 [place]: Normal P-Wave: Present QRS: RBBB ST-T: Normal QT: Normal EKG Interpretation Comments: Sinus Bradycardia with RBBB Course - Vital Signs Text/Narrative:: 1451 The patient was seen by the IRON CARRIER. Labs, CXR, and EKG ordered. He was given Toradol 30mg IVP for the chest discomfort (rates it 7/10) and ASA 324 mg po since he is a r/o DC at this point. 1545 Still having pain in his chest. Rates pain 6/10 yet. Fentanyl 50mg IVP ordered. 1600 Labs reviewed. CMP neg, TBili=1.3, Troponin=<0.017, Unable to void yet for UA. Will given LR 1 liter IV since he has not had much intake the last couple days. 1839 Patient still unable to void after 2 liters of IV fluids. RN cathed patient for UA and reports only 60 ml of dark concentrated urine. A third liter if IV fluids was ordered. 1909 UA results reviewed. Note SG=>1.030. Will send patient home after IV fluids finished. He was given written instructions and left the ER in stable condition. Last Recorded V/S: Last Vital Signs Temp 36.8 C 12/30/20 17:45 Pulse 58 L 12/30/20 18:45 Resp 21 H 12/30/20 18:45 BP 142/82 H 12/30/20 18:45 Pulse Ox 97 12/30/20 18:45 - Orders/Labs/Meds Orders: Active Orders 24 hr Category Date Time Status EKG Documentation Completion [RC] STAT Care 12/30/20 14:56 Active UA W/MICROSCOPIC [URIN] Stat Lab 12/30/20 18:36 Results Sodium Chloride 0.9% [Normal Saline] 1,000 ml Med 12/30/20 18:42 Active IV ONETIME Sodium Chloride 0.9% [Saline Flush] Med 12/30/20 14:56 Active 10 ml FLUSH ASDIRECTED PRN Saline Lock Insert [OM.PC] Stat Oth 12/30/20 14:56 Ordered Medication Orders Sodium Chloride (Normal Saline) 1,000 mls @ 999 mls/hr IV ONETIME ONE Stop: 12/30/20 19:42 Last Admin: 12/30/20 18:46 Dose: 999 mls/hr Documented by: BIETAMY Sodium Chloride (Saline Flush) 10 ml FLUSH ASDIRECTED PRN PRN Reason: Keep Vein Open Labs: Laboratory Tests 12/30/20 12/30/20 12/30/20 Range/Units 15:15 15:15 15:15 WBC 3.5 L (4.0-10.0) x10^3/uL RBC 5.17 (4.5-6.0) x10^6/uL Hgb 14.8 (14.0-18.0) g/dL Hct 42.5 (40.0-52.0) % MCV 82.2 (78.0-93.0) fL MCH 28.6 (26.0-32.0) pg MCHC 34.8 (32.0-36.0) g/dL RDW Coeff of [place] 13.3 (10.0-15.0) % Plt Count 153 (130-400) x10^3/uL Neut % (Auto) 67.4 (50.0-80.0) % Lymph % (Auto) 20.4 L (25.0-50.0) % [place] % (Auto) 9.1 (2.0-11.0) % Eos % (Auto) 2.5 (0.0-4.0) % Baso % (Auto) 0.6 (0.2-1.2) % APTT 25.7 (25.6-32.8) SEC Sodium 142 (136-145) mmol/L Potassium 4.5 (3.5-5.1) mmol/L Chloride 105 (98-107) mmol/L Carbon Dioxide 30 (21-32) mmol/L Anion Gap 11.5 (5-15) mmol/L BUN 12 (7-18) mg/dL Creatinine 1.1 (0.70-1.30) mg/dL Est Cr Clr Drug Dosing 63.67 mL/min Estimated GFR (MDRD) > 60 Glucose 98 (74-106) mg/dL Calcium 8.5 (8.5-10.1) mg/dL Corrected Calcium 8.82 (8.5-10.1) mg/dL Magnesium 2.3 (1.8-2.4) mg/dL Total Bilirubin 1.3 H (0.2-1.0) mg/dL AST 22 (15-37) U/L ALT 31 (16-63) U/L Alkaline Phosphatase 80 (46-116) U/L Troponin I < 0.017 (<=0.056) ng/mL Total Protein 6.8 (6.4-8.2) g/dL Albumin 3.6 (3.4-5.0) g/dL Globulin 3.2 Albumin/Globulin Ratio 1.13 Urine Color (YELLOW) Urine Appearance (CLEAR) Urine pH (5.0-8.0) Ur Specific [place] Urine Protein (NEGATIVE) mg/dL Urine Glucose (UA) (NEGATIVE) mg/dL Urine Ketones (NEGATIVE) mg/dL Urine Occult Blood (NEGATIVE) Urine Nitrite (NEGATIVE) Urine Bilirubin (NEGATIVE) Urine Urobilinogen (0.2) EU/dL Ur Leukocyte Esterase (NEGATIVE) 12/30/20 Range/Units 18:36 WBC (4.0-10.0) x10^3/uL RBC (4.5-6.0) x10^6/uL Hgb (14.0-18.0) g/dL Hct (40.0-52.0) % MCV (78.0-93.0) fL MCH (26.0-32.0) pg MCHC (32.0-36.0) g/dL RDW Coeff of [place] (10.0-15.0) % Plt Count (130-400) x10^3/uL Neut % (Auto) (50.0-80.0) % Lymph % (Auto) (25.0-50.0) % [place] % (Auto) (2.0-11.0) % Eos % (Auto) (0.0-4.0) % Baso % (Auto) (0.2-1.2) % APTT (25.6-32.8) SEC Sodium (136-145) mmol/L Potassium (3.5-5.1) mmol/L Chloride (98-107) mmol/L Carbon Dioxide (21-32) mmol/L Anion Gap (5-15) mmol/L BUN (7-18) mg/dL Creatinine (0.70-1.30) mg/dL Est Cr Clr Drug Dosing mL/min Estimated GFR (MDRD) Glucose (74-106) mg/dL Calcium (8.5-10.1) mg/dL Corrected Calcium (8.5-10.1) mg/dL Magnesium (1.8-2.4) mg/dL Total Bilirubin (0.2-1.0) mg/dL AST (15-37) U/L ALT (16-63) U/L Alkaline Phosphatase (46-116) U/L Troponin I (<=0.056) ng/mL Total Protein (6.4-8.2) g/dL Albumin (3.4-5.0) g/dL Globulin Albumin/Globulin Ratio Urine Color Dark yellow H (YELLOW) Urine Appearance Slightly cloudy H (CLEAR) Urine pH 5.0 (5.0-8.0) Ur Specific [place] >=1.030 Urine Protein Trace H (NEGATIVE) mg/dL Urine Glucose (UA) Negative (NEGATIVE) mg/dL Urine Ketones Trace H (NEGATIVE) mg/dL Urine Occult Blood Negative (NEGATIVE) Urine Nitrite Negative (NEGATIVE) Urine Bilirubin Small H (NEGATIVE) Urine Urobilinogen 0.2 (0.2) EU/dL Ur Leukocyte Esterase Negative (NEGATIVE) Meds: Medications Generic Name Dose Route Start Last Admin Trade Name Marcia PRN Reason Stop Dose Admin Sodium Chloride 1,000 mls @ 999 mls/hr 12/30/20 18:42 12/30/20 18:46 Normal Saline IV 12/30/20 19:42 999 mls/hr ONETIME ONE Administration Sodium Chloride 10 ml 12/30/20 14:56 Saline Flush FLUSH ASDIRECTED PRN Keep Vein Open Discontinued Medications Generic Name Dose Route Start Last Admin Trade Name Freq PRN Reason Stop Dose Admin Acetaminophen 1,000 mg 12/30/20 16:56 Tylenol Extra Strength PO 12/30/20 16:57 ONETIME ONE Fentanyl 50 mcg 12/30/20 15:44 12/30/20 15:49 Sublimaze IVPUSH 12/30/20 15:45 50 mcg ONETIME ONE Administration Lactated Ringer's 1,000 mls @ 999 mls/hr 12/30/20 16:01 12/30/20 16:03 Ringers, Lactated IV 12/30/20 17:01 999 mls/hr ONETIME ONE Administration Sodium Chloride 1,000 mls @ 999 mls/hr 12/30/20 17:19 12/30/20 17:50 Normal Saline IV 12/30/20 18:19 999 mls/hr ONETIME ONE Administration Ketorolac Tromethamine 30 mg 12/30/20 14:57 12/30/20 15:03 Toradol IVPUSH 12/30/20 14:58 30 mg ONETIME ONE Administration - Radiology Interpretation Free Text/Narrative:: XR Chest 1V=no acute findings Departure - Departure Time of Disposition: 19:13 Disposition: Home, Self-Care 01 Clinical Impression: Malaise and fatigue, Chest pain made worse by breathing, Dehydration Vaccine reaction Qualifiers: Encounter type: initial encounter Qualified Code(s): T50.Z95A - Adverse effect of other vaccines and biological substances, initial encounter - Discharge Information Prescriptions: Ondansetron [Ondansetron ODT] 4 mg PO Q6H PRN #15 tab.rapdis PRN Reason: Nausea Instructions: Dehydration, Adult, [id number] Referrals: Glenna Ribeiro PA-C [Primary Care Provider] - Sepsis Event Note (ED) - Focused Exam Vital Signs: Vital Signs Temp Pulse Resp BP Pulse Ox 12/30/20 18:45 58 L 21 H 142/82 H 97 12/30/20 17:45 36.8 C 59 L 16 141/78 H 97 12/30/20 16:45 60 18 110/68 96 12/30/20 15:45 63 18 120/74 96 12/30/20 14:45 37.1 C 68 22 H 138/74 99 - My Orders Last 24 Hours: My Active Orders 12/30/20 14:56 EKG Documentation Completion [RC] STAT Sodium Chloride 0.9% [Saline Flush] 10 ml FLUSH ASDIRECTED PRN Saline Lock Insert [OM.PC] Stat 12/30/20 18:36 UA W/MICROSCOPIC [URIN] Stat 12/30/20 18:42 Sodium Chloride 0.9% [Normal Saline] 1,000 ml IV ONETIME - Assessment/Plan Last 24 Hours: My Active Orders 12/30/20 14:56 EKG Documentation Completion [RC] STAT Sodium Chloride 0.9% [Saline Flush] 10 ml FLUSH ASDIRECTED PRN Saline Lock Insert [OM.PC] Stat 12/30/20 18:36 UA W/MICROSCOPIC [URIN] Stat 12/30/20 18:42 Sodium Chloride 0.9% [Normal Saline] 1,000 ml IV ONETIME Assessment:: 1)Malaise/Fatigue 2)Adverse Vaccine Reaction 3)Atypical Chest Pain 4)Dehydration Plan: -Continue to drink plenty of fluids as you are able. Increase your diet as you feel better. -Ondanestron ODT 4mg oral very 4-6 hours as needed for nausea #4(ER) #15(Rx) -Use ibuprofen or acetaminophen as needed for achiness -Rest -Your symptoms should improve in the next few days. IF you are not getting better, follow up with your PCP or return to the ER.
--- NOTE | 2020-12-30 15:43 | CR ---
[id number] RAD/RAD Chest PA or AP 1V EXAM: SINGLE VIEW CHEST. INDICATION: CHEST PAIN COMPARISON: CORRELATION IS MADE WITH THE CAT SCAN OF NOVEMBER 10, 2017 FINDINGS: The lungs are clear The cardiomediastinal contour is moderately prominent IMPRESSION: NO ACUTE PROCESS Kareem Roman MD 12/30/20 7815 Thank you for allowing us to participate in the care of your patient.
[2020-12-30] MEDS ORDERED: fentaNYL 100 MCG/2 ML SDV IVPUSH ONE (15:44)
[2020-12-30 15:52] LABS: ANION GAP 11.5 mmol/L (5-15); CHLORIDE,CL 105 mmol/L (98-107); SODIUM,NA 142 mmol/L (136-145)
[2020-12-30] MEDS ORDERED: Lactated Ringers 1,000 ML IV ONE (16:01)
[2020-12-30] MEDS ORDERED: Acetaminophen 500 MG Tab PO ONE (16:56)
[2020-12-30] MEDS ORDERED: Sodium Chloride 0.9% 1,000 ML IV ONE ×2 (17:19→18:42)
[2020-12-30] MEDS ORDERED: Take Home: Ondansetron 4 MG Tab.DIS, 2 Tab Pack PO ONE (19:14)
[2020-12-30 19:47] VITALS: BP 149/88; PULSE 65
== END 2020-12-30 20:24 | disposition home or self-care (01) ==
LOC: VM.ED 14:40
DX: R53.83 Other fatigue (principal); R07.1 Chest pain on breathing; E86.0 Dehydration; Z79.899 Other long term (current) drug therapy; E03.9 Hypothyroidism, unspecified; T50.B95A Adverse effect of other viral vaccines, initial encounter
CPT/HCPCS: 36415; 71045; 80053; 81001; 83735; 84484; 85025; 85730; 93005; 93010; 96374; 96375; 99284; 99285-25; A9270-GY; J1885; J3010; J7030; J7120

== ENCOUNTER 2021-09-27 18:10 | Emergency (ER) | payer MEDICAID ==
[2021-09-27] MEDS ORDERED: Sodium Chloride 0.9% 10 ML Syringe FLUSH PRN (18:23)
[2021-09-27] MEDS ORDERED: Ketorolac 30 MG/ML SDV IVPUSH ONE (18:26)
[2021-09-27 19:00] LABS: CHLORIDE,CL 106 mmol/L (98-107); SODIUM,NA 142 mmol/L (136-145)
[2021-09-27 19:02] LABS: ANION GAP 12.9 mmol/L (5-15)
--- NOTE | 2021-09-27 19:05 | CR ---
[id number] RAD/RAD Chest PA or AP 1V EXAM: RAD Chest PA or AP 1V INDICATION: CHEST PAIN COMPARISON: December 30, 2020. DISCUSSION: Cardiomediastinal silhouette is normal in size and contour. No infiltrate, effusion, pneumothorax, or edema. IMPRESSION: No acute cardiopulmonary abnormality. Mk Jones DO 09/27/21 1904 Thank you for allowing us to participate in the care of your patient.
[2021-09-27] MEDS ORDERED: Cyclobenzaprine 10 MG Tab PO ONE (19:07)
--- NOTE | 2021-09-27 19:13 | EDM.PDOC ---
ED HPI GENERAL MEDICAL PROBLEM - General Chief Complaint: Chest Pain Stated Complaint: CHEST PAIN Time Seen by Provider: 09/27/21 18:17 Source of Information: Reports: Patient - History of Present Illness INITIAL COMMENTS - FREE TEXT/NARRATIVE: Yannick is a 61 y/o male who comes to the ER with chest paibn. He reports that for the last 2 days he has been having chest discomfort across his chest region. It hurts when he moves. Denies any specific injury or trauma. 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 He has had a slight cough. No other sx. Middle Chest Pain Score (Numeric/FACES): 7 - Related Data Allergies Allergy/AdvReac Type Severity Reaction Status Date / Time No Known Allergies Allergy Verified 09/27/21 18:26 Home Meds: Home Meds Levothyroxine Sodium [Synthroid] 25 mcg PO ACBREAKFAST 09/19/17 [History] Sertraline HCl [Zoloft] 75 mg PO DAILY 09/19/17 [History] Pantoprazole Sodium [Protonix] 40 mg PO DAILY 02/15/19 [History] Naproxen Sodium [Aleve] 220 mg PO BID PRN 12/30/20 [History] Imipramine HCl [Imipramine] 25 mg PO BEDTIME 09/27/21 [History] Nitroglycerin [Nitrostat] 0.4 mg SL ASDIRECTED PRN 09/27/21 [History] Past Medical History - Past Health History Medical/Surgical History: Denies Medical/Surgical History Cardiovascular History: Reports: Other (See Below) Other Cardiovascular History: costochondral chest pain Gastrointestinal History: Reports: Other (See Below) Other Gastrointestinal History: esophageal dysmotility. L sided abd pain Genitourinary History: Reports: Other (See Below) Other Genitourinary History: nephrolithiasis Neurological History: Reports: Other (See Below) Other Neuro History: developmental delay disorder Psychiatric History: Reports: Depression Endocrine/Metabolic History: Reports: Hypothyroidism - Past Surgical History GI Surgical History: Reports: EGD Other GI Surgeries/Procedures: EGD 02/11/19 Other Musculoskeletal Surgeries/Procedures:: hammer toe surgery as a child Social & Family History - Family History Family Medical History: Unobtainable - Tobacco Use Tobacco Use Status *Q: Never Tobacco User - Caffeine Use Caffeine Use: Reports: None - Living Situation & Occupation Living situation: Reports: Single Review of Systems - Review of Systems Review Of Systems: See Below Constitutional: Reports: No Symptoms Eyes: Reports: No Symptoms Ears: Reports: No Symptoms Nose: Reports: No Symptoms Mouth/Throat: Reports: No Symptoms Respiratory: Reports: Pleuritic Chest Pain, Cough Cardiovascular: Reports: Chest Pain GI/Abdominal: Reports: No Symptoms Genitourinary: Reports: No Symptoms Musculoskeletal: Reports: No Symptoms Skin: Reports: No Symptoms Neurological: Reports: No Symptoms Psychiatric: Reports: No Symptoms ED EXAM, GENERAL - Physical Exam Exam: See Below General Appearance: Alert, WD/WN, No Apparent Distress (Developmentally disabled adult male, cooperative) Ears: Normal External Exam, Normal Canal, Hearing Grossly Normal Nose: Normal Inspection, Normal Mucosa Throat/Mouth: Normal Inspection, Normal Teeth, Normal Voice Head: Atraumatic, Normocephalic Neck: Normal Inspection, Supple Respiratory/Chest: No Respiratory Distress, Lungs Clear, Normal Breath Sounds, Other (Positive tenderness with palpation over the mid chest region) Cardiovascular: Normal Peripheral Pulses, Regular Rate, Rhythm, No Murmur GI/Abdominal: Normal Bowel Sounds, Soft (Male) Exam: Deferred Rectal (Males) Exam: Deferred Back Exam: Normal Inspection, Full Range of Motion Extremities: Normal Inspection, Normal Range of Motion, Normal Capillary Refill Neurological: Alert, Oriented, CN II-XII Intact, Normal Cognition, No Motor/Sensory Deficits Psychiatric: Normal Affect, Normal Mood Skin Exam: Warm, Dry, Intact, Normal Color Lymphatic: No Adenopathy #1 Interpretation EKG Date: 09/27/21 Time: 18:05 Rhythm: NSR Rate (Beats/Min): 84 [place]: Normal P-Wave: Present QRS: Normal ST-T: Normal QT: Normal EKG Interpretation Comments: Normal Sinus Rhythm Course - Vital Signs Text/Narrative:: 1816 The patient was seen by the GROUP PROGRAM MANAGER. Labs, EKG, and CXR were ordered. Seems to present as chest wall pain, Toradol 30mg IVP given. Will exclude cardiac etiology. 1904 Pain improved, but still there slightly, Cyclobenzaprine 5mg po ordered/ Labs neg and CXR neg. Will plan to send home with acetaminophen and muscle relaxers. 1944 Feeling better following Cyclobenzaprine. Written instructions were given and he left the ER in stable condition. Last Recorded V/S: Last Vital Signs Temp 36.3 C 09/27/21 18:10 Pulse 80 09/27/21 19:36 Resp 16 09/27/21 19:36 BP 114/81 09/27/21 19:36 Pulse Ox 95 09/27/21 19:36 - Orders/Labs/Meds Orders: Active Orders 24 hr Category Date Time Status UA RFX MARIELENA AND CULT IF INDIC [URIN] Stat Lab 09/27/21 18:23 Ordered Sodium Chloride 0.9% [Saline Flush] Med 09/27/21 18:23 Active 10 ml FLUSH ASDIRECTED PRN Saline Lock Insert [OM.PC] Stat Oth 09/27/21 18:23 Ordered Medication Orders Sodium Chloride (Sodium Chloride 0.9% 10 Ml Syringe) 10 ml FLUSH ASDIRECTED PRN PRN Reason: Keep Vein Open Labs: Laboratory Tests 09/27/21 09/27/21 09/27/21 Range/Units 18:29 18:34 18:34 WBC 5.0 (4.0-10.0) x10^3/uL RBC 5.44 (4.5-6.0) x10^6/uL Hgb 15.6 (14.0-18.0) g/dL Hct 44.5 (40.0-52.0) % MCV 81.8 (78.0-93.0) fL MCH 28.7 (26.0-32.0) pg MCHC 35.1 (32.0-36.0) g/dL RDW Coeff of [place] 12.7 (10.0-15.0) % Plt Count 224 (130-400) x10^3/uL Immature Gran % (Auto) 0.00 (0.00-0.43) % Neut % (Auto) 61.6 (50.0-80.0) % Lymph % (Auto) 29.2 (25.0-50.0) % [place] % (Auto) 5.6 (2.0-11.0) % Eos % (Auto) 2.0 (0.0-4.0) % Baso % (Auto) 1.6 H (0.2-1.2) % Neut # (Auto) 3.1 (1.8-7.7) x10^3/uL Lymph # (Auto) 1.5 (1.0-4.8) x10^3/uL [place] # (Auto) 0.3 (0.0-0.8) x10^3/uL Eos # (Auto) 0.1 (0.0-0.5) x10^3/uL Baso # (Auto) 0.1 (0.0-0.2) x10^3/uL Immature Gran # (Auto) 0.00 (0.00-0.07) x10^3/uL Sodium 142 (136-145) mmol/L Potassium 3.9 (3.5-5.1) mmol/L Chloride 106 (98-107) mmol/L Carbon Dioxide 27 (21-32) mmol/L Anion Gap 12.9 (5-15) mmol/L BUN 20 H (7-18) mg/dL Creatinine 1.1 (0.70-1.30) mg/dL Est Cr Clr Drug Dosing TNP Estimated GFR (MDRD) > 60 Glucose 100 H (70-99) mg/dL Calcium 8.9 (8.5-10.1) mg/dL Corrected Calcium 8.9 (8.5-10.1) mg/dL Magnesium 2.3 (1.8-2.4) mg/dL Total Bilirubin 1.6 H (0.2-1.0) mg/dL AST 17 (15-37) U/L ALT 29 (16-63) U/L Alkaline Phosphatase 74 (46-116) U/L Troponin I High Sens 4 (<=76) ng/L C-Reactive Protein < 0.2 (<=0.9) mg/dL Total Protein 6.9 (6.4-8.2) g/dL Albumin 4.0 (3.4-5.0) g/dL Globulin 2.9 Albumin/Globulin Ratio 1.38 SARS CoV-2 RNA Rapid GISELA Negative (NEGATIVE) Meds: Medications Generic Name Dose Route Start Last Admin Trade Name Freq PRN Reason Stop Dose Admin Sodium Chloride 10 ml 09/27/21 18:23 Sodium Chloride 0.9% 10 Ml Syringe FLUSH ASDIRECTED PRN Keep Vein Open Discontinued Medications Generic Name Dose Route Start Last Admin Trade Name Freq PRN Reason Stop Dose Admin Cyclobenzaprine HCl 5 mg 09/27/21 19:07 09/27/21 19:31 Cyclobenzaprine 10 Mg Tab PO 09/27/21 19:08 5 mg ONETIME ONE Administration Cyclobenzaprine HCl 1 packet 09/27/21 19:25 09/27/21 19:35 Take Home: Cyclobenzaprine 10 Mg Tab, 4 Tab Pack PO 09/27/21 19:26 1 packet ONETIME ONE Administration Ketorolac Tromethamine 30 mg 09/27/21 18:26 09/27/21 18:49 Ketorolac 30 Mg/Ml Sdv IVPUSH 09/27/21 18:27 30 mg ONETIME ONE Administration - Radiology Interpretation Free Text/Narrative:: XR Chest 1V=no acute findings (See final report) Departure - Departure Time of Disposition: 19:50 Disposition: Home, Self-Care 01 Condition: Good Clinical Impression: Chest wall pain - Discharge Information *PRESCRIPTION DRUG MONITORING PROGRAM REVIEWED*: Not Applicable *COPY OF PRESCRIPTION DRUG MONITORING REPORT IN PATIENT JAVAD: Not Applicable Instructions: Chest Wall Pain, [id number]-Qual Forms: ED Department Discharge Additional Instructions: -Acetaminophen 325mg 2 tablets oral every 4-6 hours -Ibuprofen 200mg 3 tablets oral every 6 hours as needed for pain. You may use both ibuprofen and acetaminophen together. -Cyclobenzaprine 10mg 1/2 tablet oral every 8 hours as needed for muscle spasm #4 tabs (ER) -Rest -Apply heat or ice to your chest region. A warm bath or shower may also help. -Follow up with your PCP in the next few days if you are not getting better. -Return to the ER as needed. Sepsis Event Note (ED) - Focused Exam Vital Signs: Vital Signs Temp Pulse Resp BP Pulse Ox 09/27/21 19:36 80 16 114/81 95 09/27/21 18:10 36.3 C 89 16 128/84 98 - Problem List & Annotations (1) Chest wall pain SNOMED Code(s): 401836491 Code(s): R07.89 - OTHER CHEST PAIN Status: Acute Current Visit: No Annotation/Comment:: Negative EKG, Negative Troponin. HEART Score=1, Risk of MACE 0.9-1.7%, discharge to home. NSAIDS and muscle relaxers. - Problem List Review Problem List Initiated/Reviewed/Updated: Yes - My Orders Last 24 Hours: My Active Orders 09/27/21 18:23 UA RFX MARIELENA AND CULT IF INDIC [URIN] Stat Sodium Chloride 0.9% [Saline Flush] 10 ml FLUSH ASDIRECTED PRN Saline Lock Insert [OM.PC] Stat - Assessment/Plan Last 24 Hours: My Active Orders 09/27/21 18:23 UA RFX MARIELENA AND CULT IF INDIC [URIN] Stat Sodium Chloride 0.9% [Saline Flush] 10 ml FLUSH ASDIRECTED PRN Saline Lock Insert [OM.PC] Stat Plan: See above
[2021-09-27] MEDS ORDERED: Take Home: Cyclobenzaprine 10 MG Tab, 4 Tab Pack PO ONE (19:25)
[2021-09-27 19:36] VITALS: BP 114/81; PULSE 80
== END 2021-09-27 20:07 | disposition home or self-care (01) ==
LOC: VM.ED 18:10
DX: R07.89 Other chest pain (principal); E03.9 Hypothyroidism, unspecified; Z79.899 Other long term (current) drug therapy; Z20.822 Contact with and (suspected) exposure to COVID-19
CPT/HCPCS: 71045; 80053; 83735; 84484; 85025; 86140; 93005; 96374; 99285-25; A9270-GY; J1885; U0002

== ENCOUNTER 2021-10-13 20:27 | Emergency (ER) | payer MEDICAID ==
[2021-10-13] MEDS: Aspirin 81 MG Tab.Chew PO ONE (20:35)
[2021-10-13] MEDS ORDERED: Sodium Chloride 0.9% 10 ML Syringe FLUSH PRN (20:37)
[2021-10-13 21:04] LABS: PTT,PARTIAL THROMBOPLSTIN TIME 24.6 SEC (25.6-32.8)
[2021-10-13 21:13] LABS: CHLORIDE,CL 104 mmol/L (98-107); SODIUM,NA 140 mmol/L (136-145)
[2021-10-13 21:14] LABS: ANION GAP 9.9 mmol/L (5-15)
[2021-10-13] MEDS: Orphenadrine 60 MG/2 ML Inj IV ONE (21:14)
--- NOTE | 2021-10-13 21:20 | EDM.PDOC ---
ED HPI GENERAL MEDICAL PROBLEM - General Stated Complaint: CHEST PAIN Time Seen by Provider: 10/13/21 20:30 Source of Information: Reports: Patient History Limitations: Reports: No Limitations - History of Present Illness INITIAL COMMENTS - FREE TEXT/NARRATIVE: Patient comes emergency department today with complaints of midsternal chest pain. This patient for the past day or so has intermittent waxing and waning shooting pain across his mid sternum. It is worse with deep breath cough and movement. He has had no recent falls trauma or injury. He has been evaluated in the emergency department recently for this and it was deemed musculoskeletal in nature and had a negative cardiac work-up. This pain started today over the past day or so it comes and goes on its own and he can reproduce it with movement. He has no shortness of breath or diaphoresis. No nausea or vomiting. No palpitations weakness dizziness lightheadedness. The pain does not radiate anywhere else other than his mid sternum. He has no abdominal pain nausea or vomiting. No shortness of breath cough or congestion. No fever no chills. No hematuria dysuria urinary frequency. He has not tried anything for the pain at this time. Chest Pain Score (Numeric/FACES): 8 - Related Data Allergies Allergy/AdvReac Type Severity Reaction Status Date / Time No Known Allergies Allergy Verified 09/27/21 18:26 Home Meds: Home Meds Levothyroxine Sodium [Synthroid] 25 mcg PO ACBREAKFAST 09/19/17 [History] Sertraline HCl [Zoloft] 75 mg PO DAILY 09/19/17 [History] Pantoprazole Sodium [Protonix] 40 mg PO DAILY 02/15/19 [History] Naproxen Sodium [Aleve] 220 mg PO BID PRN 12/30/20 [History] Imipramine HCl [Imipramine] 25 mg PO BEDTIME 09/27/21 [History] Nitroglycerin [Nitrostat] 0.4 mg SL ASDIRECTED PRN 09/27/21 [History] Cyclobenzaprine [Flexeril] 10 mg PO TID PRN #12 tab 10/13/21 [Rx] Past Medical History - Past Health History Medical/Surgical History: Denies Medical/Surgical History Cardiovascular History: Reports: Other (See Below) Other Cardiovascular History: costochondral chest pain Gastrointestinal History: Reports: Other (See Below) Other Gastrointestinal History: esophageal dysmotility. L sided abd pain Genitourinary History: Reports: Other (See Below) Other Genitourinary History: nephrolithiasis Neurological History: Reports: Other (See Below) Other Neuro History: developmental delay disorder Psychiatric History: Reports: Depression Endocrine/Metabolic History: Reports: Hypothyroidism - Past Surgical History GI Surgical History: Reports: EGD Other GI Surgeries/Procedures: EGD 02/11/19 Other Musculoskeletal Surgeries/Procedures:: hammer toe surgery as a child Social & Family History - Family History Family Medical History: Unobtainable - Caffeine Use Caffeine Use: Reports: None - Living Situation & Occupation Living situation: Reports: Single ED ROS GENERAL - Review of Systems Review Of Systems: Comprehensive ROS is negative, except as noted in HPI. ED EXAM, GENERAL - Physical Exam Exam: See Below Exam Limited By: No Limitations General Appearance: Alert, WD/WN, No Apparent Distress Eye Exam: Bilateral Eye: EOMI Ears: Normal External Exam Nose: Normal Inspection, Normal Mucosa, No Blood Throat/Mouth: Normal Inspection, Normal Lips, Normal Teeth, Normal Gums, Normal Oropharynx, Normal Voice, No Airway Compromise Head: Atraumatic, Normocephalic Neck: Normal Inspection, Supple, Non-Tender, Full Range of Motion Respiratory/Chest: No Respiratory Distress, Lungs Clear, Normal Breath Sounds, No Accessory Muscle Use, Other (He does have some tenderness over the mid sternum. There is no bruising swelling ecchymosis bony deformities or other concerning aspects on the sternum.) Cardiovascular: Normal Peripheral Pulses, Regular Rate, Rhythm, No Murmur GI/Abdominal: Normal Bowel Sounds, Soft, Non-Tender (Male) Exam: Deferred Rectal (Males) Exam: Deferred Back Exam: Normal Inspection, Full Range of Motion Extremities: Normal Inspection, Normal Range of Motion, No Pedal Edema, Normal Capillary Refill Neurological: Alert, Oriented, CN II-XII Intact, Normal Cognition, Normal Reflexes, No Motor/Sensory Deficits Psychiatric: Normal Affect, Normal Mood Skin Exam: Warm, Dry, Intact, Normal Color Course - Vital Signs Last Recorded V/S: Last Vital Signs Temp 97.2 F 10/13/21 20:27 Pulse 88 10/13/21 20:27 Resp 20 10/13/21 20:27 BP 145/88 H 10/13/21 20:27 Pulse Ox 98 10/13/21 20:27 - Orders/Labs/Meds Labs: Laboratory Tests 10/13/21 10/13/21 10/13/21 Range/Units 20:40 20:40 20:40 WBC 5.1 (4.0-10.0) x10^3/uL RBC 5.61 (4.5-6.0) x10^6/uL Hgb 16.1 (14.0-18.0) g/dL Hct 46.4 (40.0-52.0) % MCV 82.7 (78.0-93.0) fL MCH 28.7 (26.0-32.0) pg MCHC 34.7 (32.0-36.0) g/dL RDW Coeff of [place] 12.8 (10.0-15.0) % Plt Count 150 (130-400) x10^3/uL Immature Gran % (Auto) 0.20 (0.00-0.43) % Neut % (Auto) 63.8 (50.0-80.0) % Lymph % (Auto) 25.7 (25.0-50.0) % [place] % (Auto) 6.8 (2.0-11.0) % Eos % (Auto) 2.5 (0.0-4.0) % Baso % (Auto) 1.0 (0.2-1.2) % Neut # (Auto) 3.3 (1.8-7.7) x10^3/uL Lymph # (Auto) 1.3 (1.0-4.8) x10^3/uL [place] # (Auto) 0.4 (0.0-0.8) x10^3/uL Eos # (Auto) 0.1 (0.0-0.5) x10^3/uL Baso # (Auto) 0.1 (0.0-0.2) x10^3/uL Immature Gran # (Auto) 0.01 (0.00-0.07) x10^3/uL PT 10.4 (9.9-12.5) SEC INR 0.9 L (2.0-3.5) APTT 24.6 L (25.6-32.8) SEC Sodium 140 (136-145) mmol/L Potassium 3.9 (3.5-5.1) mmol/L Chloride 104 (98-107) mmol/L Carbon Dioxide 30 (21-32) mmol/L Anion Gap 9.9 (5-15) mmol/L BUN 18 (7-18) mg/dL Creatinine 1.2 (0.70-1.30) mg/dL Est Cr Clr Drug Dosing TNP Estimated GFR (MDRD) > 60 Glucose 98 (70-99) mg/dL Lactic Acid (0.4-2.0) mmol/L Calcium 8.5 (8.5-10.1) mg/dL Corrected Calcium 8.6 (8.5-10.1) mg/dL Total Bilirubin 1.2 H (0.2-1.0) mg/dL AST 26 (15-37) U/L ALT 67 H (16-63) U/L Alkaline Phosphatase 97 (46-116) U/L Troponin I High Sens < 4 (<=76) ng/L NT-Pro-B Natriuret Pep 11 (<=125) pg/mL Total Protein 7.2 (6.4-8.2) g/dL Albumin 3.9 (3.4-5.0) g/dL Globulin 3.3 Albumin/Globulin Ratio 1.18 SARS CoV-2 RNA Rapid GISELA (NEGATIVE) 10/13/21 10/13/21 Range/Units 20:40 21:15 WBC (4.0-10.0) x10^3/uL RBC (4.5-6.0) x10^6/uL Hgb (14.0-18.0) g/dL Hct (40.0-52.0) % MCV (78.0-93.0) fL MCH (26.0-32.0) pg MCHC (32.0-36.0) g/dL RDW Coeff of [place] (10.0-15.0) % Plt Count (130-400) x10^3/uL Immature Gran % (Auto) (0.00-0.43) % Neut % (Auto) (50.0-80.0) % Lymph % (Auto) (25.0-50.0) % [place] % (Auto) (2.0-11.0) % Eos % (Auto) (0.0-4.0) % Baso % (Auto) (0.2-1.2) % Neut # (Auto) (1.8-7.7) x10^3/uL Lymph # (Auto) (1.0-4.8) x10^3/uL [place] # (Auto) (0.0-0.8) x10^3/uL Eos # (Auto) (0.0-0.5) x10^3/uL Baso # (Auto) (0.0-0.2) x10^3/uL Immature Gran # (Auto) (0.00-0.07) x10^3/uL PT (9.9-12.5) SEC INR (2.0-3.5) APTT (25.6-32.8) SEC Sodium (136-145) mmol/L Potassium (3.5-5.1) mmol/L Chloride (98-107) mmol/L Carbon Dioxide (21-32) mmol/L Anion Gap (5-15) mmol/L BUN (7-18) mg/dL Creatinine (0.70-1.30) mg/dL Est Cr Clr Drug Dosing Estimated GFR (MDRD) Glucose (70-99) mg/dL Lactic Acid 0.8 (0.4-2.0) mmol/L Calcium (8.5-10.1) mg/dL Corrected Calcium (8.5-10.1) mg/dL Total Bilirubin (0.2-1.0) mg/dL AST (15-37) U/L ALT (16-63) U/L Alkaline Phosphatase (46-116) U/L Troponin I High Sens (<=76) ng/L NT-Pro-B Natriuret Pep (<=125) pg/mL Total Protein (6.4-8.2) g/dL Albumin (3.4-5.0) g/dL Globulin Albumin/Globulin Ratio SARS CoV-2 RNA Rapid GISELA Negative (NEGATIVE) Meds: Medications Discontinued Medications Generic Name Dose Route Start Last Admin Trade Name Freq PRN Reason Stop Dose Admin Al Hydroxide/Mg Hydroxide 30 ml 10/13/21 21:23 10/13/21 21:27 Gi Cocktail Oral Solution 30 Ml PO 10/13/21 21:24 30 ml ONETIME ONE Administration Aspirin 324 mg 10/13/21 20:38 10/13/21 20:35 Aspirin 81 Mg Tab.Chew PO 10/13/21 20:39 324 mg ONETIME ONE Administration Cyclobenzaprine HCl 1 packet 10/13/21 22:08 10/13/21 23:40 Take Home: Cyclobenzaprine 10 Mg Tab, 4 Tab Pack PO 10/13/21 22:09 1 packet ONETIME ONE Administration Ketorolac Tromethamine 30 mg 10/13/21 21:23 10/13/21 21:48 Ketorolac 30 Mg/Ml Sdv IVPUSH 10/13/21 21:24 30 mg ONETIME ONE Administration Orphenadrine Citrate 60 mg 10/13/21 20:39 10/13/21 21:14 Orphenadrine 60 Mg/2 Ml Inj IV 10/13/21 20:40 60 mg ONETIME ONE Administration Sodium Chloride 10 ml 10/13/21 20:37 Sodium Chloride 0.9% 10 Ml Syringe FLUSH ASDIRECTED PRN Keep Vein Open - Radiology Interpretation Free Text/Narrative:: Chest x-ray per radiology shows low lung volumes result in bibasilar vascular crowding/atelectasis. No evidence of pneumonia. No pleural effusion or pneumothorax. The heart is normal in size. - Re-Assessments/Exams Free Text/Narrative Re-Assessment/Exam: Patient was given 324 of aspirin chewable he oral. EKG without any ST elevation or depression when reviewed extemporaneously by myself. Unchanged from previous. He was given 60 mg of Norflex IV. Laboratory evaluation with a normal CBC. CMP is unremarkable with a mild elevation of the T bili at 1.2. Troponin is less than 4 and his symptoms have been going on over 24 hours. His proBNP is negative. His Covid is negative. Patient was given a GI cocktail without much improvement of his symptoms. He really felt quite a bit better after the Norflex. He was given 30 mg of Toradol IV push with complete resolution of his pain. This is really the sequelae of recurrent musculoskeletal chest pain. He was tender on palpation on the chest and movement in his HPI is consistent with musculoskeletal chest pain. He does feel better with NSAIDs and muscle relaxers. We will discharge him home with Flexeril. We will also refer him to physical therapy. I think it is also important for him to contact his primary care provider and consideration of some type of stress test. The patient's primary care provider Glenna Ribeiro PA-C had a message sent to her about these concerns. Discharge directions as below are explained the patient he was comfortable with this plan his questions are answered. Departure - Departure Time of Disposition: 22:06 Disposition: Home, Self-Care 01 Clinical Impression: Musculoskeletal chest pain Prescriptions: Cyclobenzaprine [Flexeril] 10 mg PO TID PRN #12 tab PRN Reason: Pain Instructions: Chest Wall Pain, [id number], Nonspecific Chest Pain, Adult, [id number] Referrals: Glenna Ribeiro PA-C [Primary Care Provider] - Forms: ED Department Discharge Additional Instructions: Tylenol and or Ibuprofen as needed for pain. Ice or head to the area which ever works best for you. Flexeril 1 tablet three times a day as needed for muscle pain. Self refer to Physical therapy this week for recurrent musculoskeletal pain. Return to the ED if new or worsening symptoms. Follow up with PCP this week for recheck.
[2021-10-13] MEDS: GI Cocktail Oral Solution 30 ML PO ONE (21:27)
[2021-10-13] MEDS: Ketorolac 30 MG/ML SDV IVPUSH ONE (21:48)
[2021-10-13 22:45] VITALS: BP 145/88; PULSE 88
[2021-10-13] MEDS: Take Home: Cyclobenzaprine 10 MG Tab, 4 Tab Pack PO ONE (23:40)
--- NOTE | 2021-10-14 08:46 | CR ---
[id number] RAD/RAD Chest PA or AP 1V EXAM: RAD Chest PA or AP 1V INDICATION: CHEST PAIN, SHORTNESS OF BREATH COMPARISON: September 27, 2021. DISCUSSION/IMPRESSION: Low lung volumes result in bibasal vascular crowding/atelectasis. No evidence of pneumonia. No pleural effusion or pneumothorax. Heart is normal in size. Chao Butler MD 10/14/21 0845 Thank you for allowing us to participate in the care of your patient.
== END 2021-10-13 22:16 | disposition home or self-care (01) ==
LOC: VM.ED 20:27
DX: R07.89 Other chest pain (principal); R07.2 Precordial pain; E03.9 Hypothyroidism, unspecified; Z79.899 Other long term (current) drug therapy; Z20.822 Contact with and (suspected) exposure to COVID-19
CPT/HCPCS: 71045; 80053; 83605; 83880; 84484; 85025; 85610; 85730; 93005; 96374; 96375; 99285-25; A9270-GY; J1885; J2360; U0002

== ENCOUNTER 2021-11-21 22:22 | Emergency (ER) | payer MEDICAID ==
[2021-11-21] MEDS ORDERED: Sodium Chloride 0.9% 10 ML Syringe FLUSH PRN (22:34)
[2021-11-21] MEDS ORDERED: Orphenadrine 60 MG/2 ML Inj IV STA (22:35)
--- NOTE | 2021-11-21 23:01 | PCM.EKG ---
#1 Interpretation EKG Date: 11/21/21 Time: 22:23 Rhythm: NSR Rate (Beats/Min): 94 [place]: Normal P-Wave: Present QRS: Normal ST-T: Normal QT: Normal Comparison: No Change
[2021-11-21 23:35] LABS: CHLORIDE,CL 106 mmol/L (98-107); SODIUM,NA 141 mmol/L (136-145)
[2021-11-21 23:50] LABS: ANION GAP 11.1 mmol/L (5-15)
--- NOTE | 2021-11-21 23:51 | EDM.PDOC ---
ED HPI GENERAL MEDICAL PROBLEM - General Stated Complaint: CHEST PAIN Time Seen by Provider: 11/21/21 22:22 Source of Information: Reports: Patient History Limitations: Reports: No Limitations - History of Present Illness INITIAL COMMENTS - FREE TEXT/NARRATIVE: Patient comes emergency department today from home with complaints of severe midsternal squeezing chest pain. This patient has a longstanding history of chronic chest pain which is most likely caused to esophageal spasms. He does have a history of Developmental delay as well. Hypothyroidism and atypical chest pain and INESSA. This patient for the past multiple hours has had severe midsternal chest pain that is consistent with his past chest pain. He has had no shortness of breath or difficulty breathing. No weakness dizziness lighthea dedness. No syncope. No fever no chills. No abdominal pain no nausea or vomiting. He did try his Flexeril at home that did not help. He is being followed closely by the GI clinic in [place] for his chronic esophageal spasms and is currently working to get a referral to [place]. - Related Data Allergies Allergy/AdvReac Type Severity Reaction Status Date / Time No Known Allergies Allergy Verified 09/27/21 18:26 Home Meds: Home Meds Levothyroxine Sodium [Synthroid] 25 mcg PO ACBREAKFAST 09/19/17 [History] Sertraline HCl [Zoloft] 75 mg PO DAILY 09/19/17 [History] Pantoprazole Sodium [Protonix] 40 mg PO DAILY 02/15/19 [History] Naproxen Sodium [Aleve] 220 mg PO BID PRN 12/30/20 [History] Imipramine HCl [Imipramine] 25 mg PO BEDTIME 09/27/21 [History] Nitroglycerin [Nitrostat] 0.4 mg SL ASDIRECTED PRN 09/27/21 [History] Cyclobenzaprine [Flexeril] 10 mg PO TID PRN #12 tab 10/13/21 [Rx] Past Medical History - Past Health History Medical/Surgical History: Denies Medical/Surgical History Cardiovascular History: Reports: Other (See Below) Other Cardiovascular History: costochondral chest pain Gastrointestinal History: Reports: Other (See Below) Other Gastrointestinal History: esophageal dysmotility. L sided abd pain Genitourinary History: Reports: Other (See Below) Other Genitourinary History: nephrolithiasis Neurological History: Reports: Other (See Below) Other Neuro History: developmental delay disorder Psychiatric History: Reports: Depression Endocrine/Metabolic History: Reports: Hypothyroidism - Past Surgical History GI Surgical History: Reports: EGD Other GI Surgeries/Procedures: EGD 02/11/19 Other Musculoskeletal Surgeries/Procedures:: hammer toe surgery as a child Social & Family History - Family History Family Medical History: Unobtainable - Caffeine Use Caffeine Use: Reports: None - Living Situation & Occupation Living situation: Reports: Single ED ROS GENERAL - Review of Systems Review Of Systems: Comprehensive ROS is negative, except as noted in HPI. ED EXAM, GENERAL - Physical Exam Exam: See Below Exam Limited By: No Limitations General Appearance: Alert, WD/WN, No Apparent Distress, Anxious Eye Exam: Bilateral Eye: EOMI Ears: Normal External Exam Nose: Normal Inspection Throat/Mouth: Normal Inspection Head: Atraumatic, Normocephalic Neck: Normal Inspection, Supple, Non-Tender Respiratory/Chest: No Respiratory Distress, Lungs Clear, Normal Breath Sounds, No Accessory Muscle Use, Chest Non-Tender Cardiovascular: Normal Peripheral Pulses, Regular Rate, Rhythm GI/Abdominal: Normal Bowel Sounds, Soft, Non-Tender (Male) Exam: Deferred Rectal (Males) Exam: Deferred Back Exam: Normal Inspection, Full Range of Motion Extremities: Normal Inspection, Normal Range of Motion, Normal Capillary Refill Neurological: Alert, Oriented, Normal Cognition, No Motor/Sensory Deficits Psychiatric: Normal Affect, Normal Mood Skin Exam: Warm, Dry, Intact, Normal Color, No Rash Lymphatic: No Adenopathy Course - Vital Signs Last Recorded V/S: Last Vital Signs Temp 97.8 F 11/21/21 22:45 Pulse 94 11/21/21 22:45 Resp 19 11/21/21 22:45 BP 119/78 11/21/21 22:45 Pulse Ox 98 11/21/21 22:45 - Orders/Labs/Meds Labs: Laboratory Tests 11/21/21 11/21/21 11/21/21 Range/Units 21:38 21:38 21:38 WBC 7.0 (4.0-10.0) x10^3/uL RBC 5.54 (4.5-6.0) x10^6/uL Hgb 15.9 (14.0-18.0) g/dL Hct 45.6 (40.0-52.0) % MCV 82.3 (78.0-93.0) fL MCH 28.7 (26.0-32.0) pg MCHC 34.9 (32.0-36.0) g/dL RDW Coeff of [place] 13.3 (10.0-15.0) % Plt Count 291 D (130-400) x10^3/uL Immature Gran % (Auto) 0.10 (0.00-0.43) % Neut % (Auto) 64.9 (50.0-80.0) % Lymph % (Auto) 24.3 L (25.0-50.0) % [place] % (Auto) 7.8 (2.0-11.0) % Eos % (Auto) 2.0 (0.0-4.0) % Baso % (Auto) 0.9 (0.2-1.2) % Neut # (Auto) 4.6 (1.8-7.7) x10^3/uL Lymph # (Auto) 1.7 (1.0-4.8) x10^3/uL [place] # (Auto) 0.6 (0.0-0.8) x10^3/uL Eos # (Auto) 0.1 (0.0-0.5) x10^3/uL Baso # (Auto) 0.1 (0.0-0.2) x10^3/uL Immature Gran # (Auto) 0.01 (0.00-0.07) x10^3/uL Sodium 141 (136-145) mmol/L Potassium 4.1 (3.5-5.1) mmol/L Chloride 106 (98-107) mmol/L Carbon Dioxide 28 (21-32) mmol/L Anion Gap 11.1 (5-15) mmol/L BUN 21 H (7-18) mg/dL Creatinine 1.1 (0.70-1.30) mg/dL Est Cr Clr Drug Dosing TNP Estimated GFR (MDRD) > 60 Glucose 89 (70-99) mg/dL Lactic Acid 1.5 (0.4-2.0) mmol/L Calcium 9.4 (8.5-10.1) mg/dL Corrected Calcium 9.4 (8.5-10.1) mg/dL Magnesium 2.6 H (1.8-2.4) mg/dL Total Bilirubin 1.4 H (0.2-1.0) mg/dL AST 20 (15-37) U/L ALT 36 (16-63) U/L Alkaline Phosphatase 90 (46-116) U/L Troponin I High Sens 6 (<=76) ng/L C-Reactive Protein 0.2 (<=0.9) mg/dL NT-Pro-B Natriuret Pep 36 (<=125) pg/mL Total Protein 7.6 (6.4-8.2) g/dL Albumin 4.0 (3.4-5.0) g/dL Globulin 3.6 Albumin/Globulin Ratio 1.11 Ethyl Alcohol 3 (0-3) mg/dL Meds: Medications Discontinued Medications Generic Name Dose Route Start Last Admin Trade Name Freq PRN Reason Stop Dose Admin Orphenadrine Citrate 60 mg 11/21/21 22:35 11/21/21 22:45 Orphenadrine 60 Mg/2 Ml Inj IV 11/21/21 22:36 60 mg NOW STA Administration Sodium Chloride 10 ml 11/21/21 22:34 Sodium Chloride 0.9% 10 Ml Syringe FLUSH ASDIRECTED PRN Keep Vein Open - Re-Assessments/Exams Free Text/Narrative Re-Assessment/Exam: EKG initially reviewed extemporaneously by myself does not show any acute changes or concern of ischemia no ST elevation or depression when reviewed extemporaneously by myself. IV was established labs are drawn. Norflex 60 mg IV push which is worked well for his chest pain that he has had in the past. Laboratory evaluation is really unremarkable. His alcohol is negative. His troponin is negative. Rest of his labs are nonconcerning and unremarkable. Did review the patient's chart quite extensively in his [facility] chart. There is quite a bit of concerns for his esophageal spasms being the cause of his chronic chest pain. He is almost completely asymptomatic following the administration of the Norflex. I do not see in his chart at all where he has had a trial of phosphodiesterase inhibitors. He has received all of the other primary therapies for gastro esophageal spasms. I assured the patient at this time that his is most likely has chronic esophageal spasms causing his pain today. I do not see any signs of cardiac involvement. He has quite a bit better with the Norflex. I will remind him to try peppermint oil or Altoids prior to eating or at the time of acute midsternal chronic chest pain. If this does not improve or resolve he should recheck in the emergency department for the concerns of underlying cardiac disease as well although it is not clinically evident at this time. I would so recommend a trial of Viagra or sildenafil as some studies have shown an improvement of esophageal spasms although I will leave his up to his pcp GI MD. He is comfortable with this plan and his questions answered. Departure - Departure Time of Disposition: 23:55 Disposition: Home, Self-Care 01 Clinical Impression: Non-cardiac chest pain, Spasm of esophagus Instructions: Esophageal Spasm, Nonspecific Chest Pain, Adult, [id number] Referrals: Glenna Ribeiro PA-C [Primary Care Provider] - Forms: ED Department Discharge Additional Instructions: Continue your previous medications Use Peppermint oil or lozenges when spasms happen. 2 Altoids sublingually before each meal. Contact your [employer]ressing [employer] and see if they would be willing to try a as needed Sildenafil. They may be able to get it approved through insurance as this can be quite expensive although when used for medical conditions such as this the coverage may be different. Return to the ED if new or worsening symptoms. Follow up as above.
[2021-11-22 00:46] VITALS: BP 119/78; PULSE 94
== END 2021-11-22 00:04 | disposition home or self-care (01) ==
LOC: VM.ED 22:22
DX: R07.89 Other chest pain (principal); K22.4 Dyskinesia of esophagus; Z79.899 Other long term (current) drug therapy
CPT/HCPCS: 80053; 80307; 83605; 83735; 83880; 84484; 85025; 86140; 93005; 96374; 99284; 99285-25; J2360

== ENCOUNTER 2021-12-27 05:07 | Emergency (ER) | payer MEDICAID ==
[2021-12-27] MEDS ORDERED: Orphenadrine 60 MG/2 ML Inj IM ONE (05:30)
[2021-12-27 05:36] VITALS: BP 186/81; PULSE 80
[2021-12-27 05:37] LABS: CHLORIDE,CL 105 mmol/L (98-107); SODIUM,NA 140 mmol/L (136-145)
[2021-12-27 05:38] LABS: ANION GAP 11.8 mmol/L (5-15)
== END 2021-12-27 08:45 | disposition home or self-care (01) ==
LOC: VM.ED 05:07
DX: R07.89 Other chest pain (principal); E03.9 Hypothyroidism, unspecified; Z79.899 Other long term (current) drug therapy
CPT/HCPCS: 36415; 71046; 80048; 82550; 84484; 85025; 86140; 93010; 96372; 99284; 99285-25; J2360

== ENCOUNTER 2022-06-24 04:03 | Emergency (ER) | payer MEDICAID ==
[2022-06-24] MEDS ORDERED: Albuterol 0.083% 2.5 MG/3 ML Neb Soln NEB ONE (04:15)
[2022-06-24 05:14] LABS: CHLORIDE,CL 104 mmol/L (98-107); SODIUM,NA 138 mmol/L (136-145)
[2022-06-24 05:17] LABS: ANION GAP 10.7 mmol/L (5-15); ESTIMATED GFR 87 mL/min (>=60)
[2022-06-24 05:18] LABS: PTT,PARTIAL THROMBOPLSTIN TIME 24.3 SEC (20.5-30.9)
[2022-06-24 05:19] VITALS: BP 153/80; PULSE 65
[2022-06-24 05:22] LABS: CORONAVIRUS COVID-19 NAA NEGATIVE (NEGATIVE); RESPIRATORY SYNCYTIAL VIR NAA NEGATIVE (NEGATIVE)
[2022-06-24] MEDS ORDERED: Ketorolac 15 MG/ML SDV IVPUSH ONE (05:23)
== END 2022-06-24 06:00 | disposition home or self-care (01) ==
LOC: VM.ED 04:03
DX: R07.89 Other chest pain (principal); E03.9 Hypothyroidism, unspecified; Z79.899 Other long term (current) drug therapy; Z20.822 Contact with and (suspected) exposure to COVID-19
CPT/HCPCS: 0241U; 36415; 71045; 80053; 83735; 84484; 85025; 85379; 85610; 85730; 86140; 93005; 93010; 96374; 99284; 99285-25; J1885; J7613-GY

== ENCOUNTER 2022-08-07 12:02 | Emergency (ER) | payer MEDICAID ==
[2022-08-07] MEDS ORDERED: Acetaminophen 325 MG Tab PO ONE (12:27)
[2022-08-07 13:24] VITALS: BP 142/83; PULSE 70
== END 2022-08-07 12:55 | disposition home or self-care (01) ==
LOC: VM.ED 12:02
DX: U07.1 COVID-19 (principal); S29.011A Strain of muscle and tendon of front wall of thorax, initial encounter; E03.9 Hypothyroidism, unspecified; Z79.899 Other long term (current) drug therapy
CPT/HCPCS: 87635; 99283; A9270; U0002

== ENCOUNTER 2023-02-09 19:34 | Emergency (ER) | payer MEDICAID ==
[2023-02-09 20:35] LABS: CHLORIDE,CL 106 mmol/L (98-107); SODIUM,NA 144 mmol/L (136-145)
[2023-02-09 20:37] LABS: ANION GAP 13.8 mmol/L (5-15); ESTIMATED GFR 69 mL/min (>=60)
[2023-02-09] MEDS ORDERED: Sodium Chloride 0.9% 1,000 ML IV ONE (20:45)
[2023-02-09 21:41] VITALS: BP 128/70; PULSE 66
== END 2023-02-09 21:52 | disposition home or self-care (01) ==
LOC: VM.ED 19:34
DX: E86.0 Dehydration (principal); R53.81 Other malaise; R53.83 Other fatigue; E03.9 Hypothyroidism, unspecified; Z79.899 Other long term (current) drug therapy; Z86.16 Personal history of COVID-19
CPT/HCPCS: 36415; 80053; 81003; 83735; 85025; 86140; 87651; 96360; 99283; J7030

== ENCOUNTER 2023-12-07 23:30 | Emergency (ER) | payer MEDICAID ==
[2023-12-07] MEDS ORDERED: Sodium Chloride 0.9% 10 ML Syringe FLUSH PRN (23:41)
[2023-12-07] MEDS ORDERED: HYDROmorphone 1 MG/ML Syringe IVPUSH ONE (23:42)
[2023-12-07] MEDS ORDERED: Lactated Ringers 1,000 ML IV ONE (23:42)
[2023-12-07] MEDS ORDERED: Ondansetron 4 MG/2 ML SDV IVPUSH ONE (23:42)
[2023-12-08 00:04] LABS: BASOPHILS ABSOLUTE AUTO 0.1 x10^3/uL (0.0-0.2); BASOPHILS PERCENT AUTO 1.1 % (0.2-1.2); EOSINOPHILS ABSOLUTE AUTO 0.1 x10^3/uL (0.0-0.5); EOSINOPHILS PERCENT AUTO 2.6 % (0.0-4.0); HEMATOCRIT 48.5 % (40.0-52.0); HEMOGLOBIN 16.8 g/dL (14.0-18.0); IMMATURE GRAN ABSOLUTE AUTO 0.01 x10^3/uL (0.00-0.07); LYMPHOCYTES ABSOLUTE AUTO 1.6 x10^3/uL (1.0-4.8); LYMPHOCYTES PERCENT AUTO 29.8 % (25.0-50.0); MEAN CORPUSCULAR HEMOGLOBIN 28.7 pg (26.0-32.0); MEAN CORPUSCULAR HGB CONC 34.6 g/dL (32.0-36.0); MEAN CORPUSCULAR VOLUME 82.8 fL (78.0-93.0); MONOCYTES ABSOLUTE AUTO 0.3 x10^3/uL (0.0-0.8); MONOCYTES PERCENT AUTO 5.7 % (2.0-11.0); NEUTROPHILS ABSOLUTE AUTO 3.3 x10^3/uL (1.8-7.7); NEUTROPHILS PERCENT AUTO 60.6 % (50.0-80.0); PLATELET COUNT,PLT 202 x10^3/uL (130-400); RED BLOOD CELL COUNT 5.86 x10^6/uL (4.5-6.0); WHITE BLOOD CELL COUNT,WBC 5.4 x10^3/uL (4.0-10.0)
[2023-12-08 00:07] VITALS: PULSE 68
[2023-12-08 00:26] LABS: A/G RATIO 1.11; ALANINE AMINOTRANSFERASE,ALT 34 U/L (16-63); ALBUMIN 3.9 g/dL (3.4-5.0); ALKALINE PHOSPHATASE 80 U/L (46-116); ASPARTATE AMNIOTRANSFERASE,AST 23 U/L (15-37); BILIRUBIN TOTAL 1.7 mg/dL (0.2-1.0); BLOOD UREA NITROGEN,BUN 20 mg/dL (7-18); CALCIUM 8.9 mg/dL (8.5-10.1); CARBON DIOXIDE,CO2 28 mmol/L (21-32); CHLORIDE,CL 107 mmol/L (98-107); CREATININE 1.1 mg/dL (0.70-1.30); EST CRCL DRUG DOSING (CG) 61.34 mL/min; GLUCOSE RANDOM 91 mg/dL (70-99); POTASSIUM,K 3.9 mmol/L (3.5-5.1); PROTEIN TOTAL,TP 7.4 g/dL (6.4-8.2); SODIUM,NA 144 mmol/L (136-145)
[2023-12-08 00:27] LABS: ANION GAP 12.9 mmol/L (5-15); C-REACTIVE PROTEIN < 0.50 mg/dL (<=0.50); ESTIMATED GFR 76 mL/min (>=60)
[2023-12-08] MEDS ORDERED: Lactated Ringers 1,000 ML IV ONE (00:45)
[2023-12-08 00:59] LABS: APPEARANCE,URINE CLEAR (CLEAR); BILIRUBIN,URINE NEGATIVE (NEGATIVE); COLOR,URINE YELLOW (YELLOW); GLUCOSE,URINE NEGATIVE (NEGATIVE); KETONES,URINE NEGATIVE (NEGATIVE); LEUKOCYTE ESTERASE,URINE NEGATIVE (NEGATIVE); NITRITE,URINE NEGATIVE (NEGATIVE); OCCULT BLOOD,URINE NEGATIVE (NEGATIVE); PH,URINE 5.5 (5.0-8.0); PROTEIN,URINE NEGATIVE (NEGATIVE); UROBILINOGEN,URINE 0.2 EU/dL (0.2)
[2023-12-08] MEDS ORDERED: Ketorolac 15 MG/ML SDV IVPUSH ONE (01:36)
[2023-12-08] MEDS ORDERED: Magnesium Hydroxide 400 MG/5 ML Susp 30 ML Cup PO ONE (01:54)
[2023-12-08 02:52] VITALS: BP 133/81
== END 2023-12-08 02:10 | disposition home or self-care (01) ==
LOC: VM.ED 23:30
DX: K59.00 Constipation, unspecified (principal); E86.0 Dehydration; E03.9 Hypothyroidism, unspecified; Z86.16 Personal history of COVID-19; Z79.899 Other long term (current) drug therapy
CPT/HCPCS: 74019; 80053; 81003; 83605; 85025; 86140; 96361; 96374; 96375; 99284; A9270; J1170; J1885; J2405; J7120

== ENCOUNTER 2024-08-03 14:26 | Emergency (ER) | payer MEDICAID ==
[2024-08-03 14:37] VITALS: BP 140/83; PULSE 79
[2024-08-03] MEDS: diphenhydrAMINE 25 MG Cap PO ONE (15:13)
== END 2024-08-03 15:30 | disposition home or self-care (01) ==
LOC: VM.ED 14:26 → SUPCPDRO 14:26 → VM.ED 15:30
DX: S10.86XA Insect bite of other specified part of neck, initial encounter (principal); E03.9 Hypothyroidism, unspecified; Z86.16 Personal history of COVID-19; Z79.899 Other long term (current) drug therapy; W57.XXXA Bitten or stung by nonvenomous insect and other nonvenomous arthropods, initial encounter
CPT/HCPCS: 99282; A9270; 99283